=== PATIENT | male | born 1950 | race Caucasian/White ===

== ENCOUNTER → 2019-12-05 13:37 | Outpatient (BNVA) | payer MEDICARE, OTHER, SELFPAY | PROVIDERS: PCP Internal Medicine; Visit Provider Physician Assistant | DX: Z76.89 Persons encountering health services in other specified circumstances (principal) ==

== ENCOUNTER → 2019-12-07 08:04 | Outpatient (BNVA) | payer MEDICARE, OTHER, SELFPAY | PROVIDERS: PCP Internal Medicine; Visit Provider Physician Assistant | DX: E66.9 Obesity, unspecified (principal); Z68.35 Body mass index [BMI] 35.0-35.9, adult; E55.9 Vitamin D deficiency, unspecified | CPT/HCPCS: 99214 ==

== ENCOUNTER → 2020-02-08 08:35 | Outpatient (BNVA) | payer MEDICARE, OTHER, SELFPAY | PROVIDERS: PCP Internal Medicine; Referring Provider Internal Medicine; Visit Provider Physician Assistant | DX: E66.9 Obesity, unspecified (principal) | CPT/HCPCS: Q3014 ==

== ENCOUNTER → 2020-03-14 08:40 | Outpatient (BNVA) | payer MEDICARE, OTHER, SELFPAY | PROVIDERS: PCP Internal Medicine; Visit Provider Physician Assistant | DX: Z13.89 Encounter for screening for other disorder (principal) | CPT/HCPCS: Q3014 ==

== ENCOUNTER → 2020-04-14 08:15 | Outpatient (BNVA) | payer MEDICARE, OTHER, SELFPAY | PROVIDERS: PCP Internal Medicine; Visit Provider Dietitian, Registered ==

== ENCOUNTER → 2020-05-16 08:19 | Outpatient (BNVA) | payer MEDICARE, OTHER, SELFPAY | PROVIDERS: PCP Internal Medicine; Visit Provider Physician Assistant ==

== ENCOUNTER 2022-06-29 11:41 | Emergency (ER) | payer MEDICARE, OTHER, SELFPAY ==
--- NOTE | ~2022-06-29 | XR_ITS ---
EXAMINATION: XR TIBIA AND FIBULA, LEFT CLINICAL INFORMATION: Trauma, pain. COMPARISON: None available. TECHNIQUE: AP and lateral views of the left tibia and fibula were obtained. FINDINGS: The bones and soft tissues are normal. No fracture. No osseous lesions. There is tiny inferior calcaneal spur. XR/XR tibia fibula LT 2V IMPRESSION: No fracture or dislocation.
--- NOTE | ~2022-06-29 | US_ITS ---
EXAMINATION: US VENOUS ULTRASOUND WITH DOPPLER LOWER EXTREMITY, LEFT CLINICAL INFORMATION: Left lower extremity swelling COMPARISON: None available. TECHNIQUE: Ultrasound of the deep veins is performed from the hip to the calf with compression sonography and color and pulse Doppler assessment. Spectral analysis with color-flow imaging is performed. FINDINGS: There is normal venous compression and respiratory variation and augmented flow. The visualized common femoral vein, superficial femoral vein, profunda femoral vein, popliteal vein, and the trifurcation region shows no evidence of deep venous thrombosis. There is no significant popliteal fossa cyst. US/US venous duplex LE LT IMPRESSION: No DVT demonstrated in the left lower extremity.
--- NOTE | 2022-06-29 11:52 | ED.LOWEXIN ---
HPI - Extremity Injury (Lower) General Chief Complaint: Extremity Problem <JACKIE Burdick - Last Filed: 06/29/22 11:58> Stated Complaint: L leg cellulitis <JACKIE Burdick - Last Filed: 06/29/22 11:58> Time Seen by Provider: 06/29/22 13:31 <JACKIE Burdick - Last Filed: 06/29/22 11:58> Source: patient <John Quarles - Last Filed: 06/29/22 15:09> Limitations: language barrier <John Quarles - Last Filed: 06/29/22 15:09> History of Present Illness HPI Narrative: 71-year-old male who presents with left lower leg calf pain and swelling. Patient recently injured the left mobley on a cement stay approximately 4 days prior. Patient states there was some redness noted seen by PCP started on Keflex to avoid any cellulitis. Patient has a history of sepsis in the past and was not take any chances. Patient has longstanding history of hypertension, obstructive sleep apnea, asthma. Patient denies fever chills shortness of breath. Patient takes he is on Eliquis secondary to atrial fibrillation. Symptoms mild to moderate pain overall slight at this time. <John Quarles - Last Filed: 06/29/22 15:09> Related Data Home Medications: Home Medications Medication Instructions Recorded Confirmed albuterol sulfate 90 mcg/actuation 2 puff PO Q4H 12/07/19 03/14/20 aerosol inhaler allopurinol 100 mg tablet mg PO 12/07/19 03/14/20 amlodipine 10 mg tablet 10 mg PO DAILY 12/07/19 03/14/20 betamethasone dipropionate 0.05 % applic topical 12/07/19 03/14/20 topical cream hydrocortisone-pramoxine 1 %-1 % applic topical BID 12/07/19 03/14/20 topical cream spironolactone 25 mg tablet 25 mg PO DAILY 12/07/19 03/14/20 Previous Rx's Medication Instructions Recorded cholecalciferol (vitamin D3) 25 25 mcg PO DAILY #30 caps 12/07/19 mcg (1,000 unit) capsule <JACKIE Burdick Last Filed: 06/29/22 11:58> Allergies/Adverse Reactions: Allergies Allergy/AdvReac Type Severity Reaction Status Date / Time aspirin [ASA] Allergy Intermediate VOMIT Verified 06/29/22 11:53 latex [LATEX] Allergy Intermediate VOMIT Verified 06/29/22 11:53 Latex Allergy Unknown rash Uncoded 10/25/19 00:00 <JACKIE Burdick - Last Filed: 06/29/22 11:58> Review of Systems Review of Systems: General: No fever, no chills Ophthalmology: No vision changes, no discharge ENT: No sore throat, no ear pain Cardiovascular: No chest pain, no peripheral edema, no shortness of breath Respiratory: No dyspnea, no sputum production, no cough Muscle skeletal: Left calf pain leg pain GI: No abdominal pain: no nausea vomiting, no diarrhea : No dysuria, no urgency, no frequency Skin: No rash Immunology: No immunocompromised Hematology: No bleeding, no bruising <John Quarles - Last Filed: 06/29/22 15:09> [facility] Past Medical History Attestation statement: The following information was validated with the patient. <John Quarles - Last Filed: 06/29/22 15:09> Medical History: Medical History Aftercare following left shoulder joint replacement surgery Asthma Hypertension Nephrolithiasis Obstructive sleep apnea Tinnitus <JACKIE Burdick - Last Filed: 06/29/22 11:58> Surgical History: Surgical History H/O laminectomy S/p bilateral carpal tunnel release <JACKIE Burdick - Last Filed: 06/29/22 11:58> Social History Social History: Social History Alcohol intake: never Smoked in Last 30 Days: No Use of substances other than those prescribed or required for medical reasons: No Advance Directives: No Advance Directives Information Provided: Yes <JACKIE Burdick - Last Filed: 06/29/22 11:58> Physical Exam Vital Signs: Vital Signs: Last Vital Signs Temp 98 F 06/29/22 11:54 Pulse 82 06/29/22 11:54 Resp 18 06/29/22 11:54 BP 123/67 06/29/22 11:54 Pulse Ox 96 06/29/22 11:54 O2 Del Method Room Air 06/29/22 11:54 BMI result Body Mass Index 34.8 <JACKIE Burdick - Last Filed: 06/29/22 11:58> Vital Signs: Last Vital Signs Temp 98 F 06/29/22 11:54 Pulse 82 06/29/22 11:54 Resp 18 06/29/22 11:54 BP 123/67 06/29/22 11:54 Pulse Ox 96 06/29/22 11:54 O2 Del Method Room Air 06/29/22 11:54 BMI result Body Mass Index 34.8 <John Quarles - Last Filed: 06/29/22 15:09> General appearance: Awake, alert, cooperative, in no acute distress Skin: Warm, dry, no rash, no areas of erythema induration in the left leg no areas of lymphangitis Eyes: PERRL, EOMI, no icterus ENT: Oropharynx normal, uvula midline Neck: Soft supple full range of motion Pulmonary: Breath sounds clear to auscultation bilaterally, no accessory muscle use Cardiovascular: Regular rate and rhythm, no murmurs and rubs Abdomen: Soft nontender, no rebound or guarding, positive bowel sounds Extremities: Left calf slightly tender no ecchymosis erythema. Slight tenderness over the tibia proximal aspect small hematoma pulses sensation intact Neuro: Alert oriented x3, no focal deficit Psych: Normal affect <John Quarles - Last Filed: 06/29/22 15:09> Course Course Course Narrative: RME: 71yo M w/PMHx HTN, asthma, [place], c/o LLE injury last week s/p hitting leg on stair, was seen by PCP started Keflex for cellulitis on 5/2 w/some improvement, now reports swelling/discoloration noted to LLE. Pt on Eliquis. denies area worsening + scabbed over/healing wound to left anterior mobley with inferior swelling/pitting edema and firmness. No fluctuance/induration. Faintly erythematous, not warm Labs, venous duplex ultrasound ordered Full HPI, ROS and PE to be performed by primary ED provider. <JACKIE Burdick - Last Filed: 06/29/22 11:58> Left leg DVT Left leg cellulitis Tibial contusion Left tibial hematoma Compartment syndrome less likely 71-year-old male with left leg trauma proximally 4 days prior when he injured on a cement step. Patient is currently on Eliquis secondary atrial fibrillation. Patient was advised to get seen if he had any swelling or pain in his calf. Duplex ultrasounds pending will get tib fib of left leg. CBC BMP unremarkable at this time <John Quarles - Last Filed: 06/29/22 15:09> Medical Decision Making Medical Decision Making MDM Narrative: Left leg cellulitis Left leg DVT Left leg tibial fracture Left leg hematoma Left leg contusion 71-year-old male who presents after injuring his leg 4 days prior start on antibiotics secondary to concerns cellulitis by PCP. Patient began have some calf pain was sent to the ER for further evaluation. 15:07 ultrasound duplex is negative for DVT tib-fib x-ray is also negative for fracture. A clinical exam patient has a small hematoma of the mobley of the left leg. No signs of compartment syndrome. Pulses are intact sensations intact. Will plan to discharge patient home at this time. <John Quarles - Last Filed: 06/29/22 15:09> Lab Data Result Diagrams: 06/29/22 12:57 06/29/22 12:57 <JACKIE Burdick - Last Filed: 06/29/22 11:58> Labs: Lab Results 06/29/22 06/29/22 06/29/22 Range/Units 12:57 12:57 12:57 WBC 8.2 (4.8-10.8) X10*3/uL RBC 4.57 L (4.60-5.80) X10*6/uL Hgb 13.3 L (14.0-18.0) g/dl Hct 41.1 L (42.0-52.0) % MCV 89.9 (80.0-98.0) fL MCH 29.1 (27.0-33.0) pg MCHC 32.4 (31.0-36.0) g/dl RDW 13.1 (11.0-16.0) % Plt Count 249 (160-400) X10*3/uL MPV 9.6 (9.4-12.4) fL Immature Gran % (Auto) 0.4 (0.0-0.4) % Neut % (Auto) 66.8 (45-73) % Lymph % (Auto) 21.1 (20-40) % Calhoun % (Auto) 9.6 (2-11) % Eos % (Auto) 1.5 (0-4) % Baso % (Auto) 0.6 (0-2) % Lymph # (Auto) 1.7 (1.2-4.9) X10*3/uL Calhoun # (Auto) 0.8 (0.1-1.2) X10*3/uL Eos # (Auto) 0.1 (0.0-0.4) X10*3/uL Baso # (Auto) 0.1 (0.0-0.2) X10*3/uL Abs Immat Gran (auto) 0.03 (0.00-0.03) X10*3/uL Absolute Neuts (auto) 5.5 (2.0-8.3) x10*3/uL Absolute Nucleated RBC 0.000 (0.0-0.012) X10*3/uL Nucleated RBC % (auto) 0.0 (0.0-0.2) /100WBC PT 13.8 H (10.0-13.1) SEC INR 1.2 H (0.9-1.1) Sodium 139 (135-145) mmol/L Potassium 4.6 (3.3-5.1) mmol/L Chloride 106 (96-108) mmol/L Carbon Dioxide 25 (22-29) mmol/L Anion Gap 13 (12-20) BUN 26 H (9-16) mg/dL Creatinine 0.99 (0.5-1.4) mg/dL Estim Creat Clear Calc 95.3 Estimated GFR > 60 Random Glucose 84 (60-115) mg/dL Calcium 9.1 (8.4-10.2) mg/dL Total Bilirubin 0.6 (0.0-1.0) mg/dL Direct Bilirubin 0.2 (0.0-0.5) mg/dL AST 17 (5-37) U/L ALT 17 (0-40) U/L Alkaline Phosphatase 86 (39-117) U/L B-Natriuretic Peptide (<100) pg/mL Total Protein 7.1 (6.5-8.0) g/dL Albumin 4.5 (3.5-5.0) g/dL 05/09/23 Range/Units 12:57 WBC (4.8-10.8) X10*3/uL RBC (4.60-5.80) X10*6/uL Hgb (14.0-18.0) g/dl Hct (42.0-52.0) % MCV (80.0-98.0) fL MCH (27.0-33.0) pg MCHC (31.0-36.0) g/dl RDW (11.0-16.0) % Plt Count (160-400) X10*3/uL MPV (9.4-12.4) fL Immature Gran % (Auto) (0.0-0.4) % Neut % (Auto) (45-73) % Lymph % (Auto) (20-40) % Calhoun % (Auto) (2-11) % Eos % (Auto) (0-4) % Baso % (Auto) (0-2) % Lymph # (Auto) (1.2-4.9) X10*3/uL Calhoun # (Auto) (0.1-1.2) X10*3/uL Eos # (Auto) (0.0-0.4) X10*3/uL Baso # (Auto) (0.0-0.2) X10*3/uL Abs Immat Gran (auto) (0.00-0.03) X10*3/uL Absolute Neuts (auto) (2.0-8.3) x10*3/uL Absolute Nucleated RBC (0.0-0.012) X10*3/uL Nucleated RBC % (auto) (0.0-0.2) /100WBC PT (10.0-13.1) SEC INR (0.9-1.1) Sodium (135-145) mmol/L Potassium (3.3-5.1) mmol/L Chloride (96-108) mmol/L Carbon Dioxide (22-29) mmol/L Anion Gap (12-20) BUN (9-16) mg/dL Creatinine (0.5-1.4) mg/dL Estim Creat Clear Calc Estimated GFR Random Glucose (60-115) mg/dL Calcium (8.4-10.2) mg/dL Total Bilirubin (0.0-1.0) mg/dL Direct Bilirubin (0.0-0.5) mg/dL AST (5-37) U/L ALT (0-40) U/L Alkaline Phosphatase (39-117) U/L B-Natriuretic Peptide 19 (<100) pg/mL Total Protein (6.5-8.0) g/dL Albumin (3.5-5.0) g/dL <JACKIE Burdick - Last Filed: 06/29/22 11:58> Lab Results 06/29/22 06/29/22 06/29/22 Range/Units 12:57 12:57 12:57 WBC 8.2 (4.8-10.8) X10*3/uL RBC 4.57 L (4.60-5.80) X10*6/uL Hgb 13.3 L (14.0-18.0) g/dl Hct 41.1 L (42.0-52.0) % MCV 89.9 (80.0-98.0) fL MCH 29.1 (27.0-33.0) pg MCHC 32.4 (31.0-36.0) g/dl RDW 13.1 (11.0-16.0) % Plt Count 249 (160-400) X10*3/uL MPV 9.6 (9.4-12.4) fL Immature Gran % (Auto) 0.4 (0.0-0.4) % Neut % (Auto) 66.8 (45-73) % Lymph % (Auto) 21.1 (20-40) % Calhoun % (Auto) 9.6 (2-11) % Eos % (Auto) 1.5 (0-4) % Baso % (Auto) 0.6 (0-2) % Lymph # (Auto) 1.7 (1.2-4.9) X10*3/uL Calhoun # (Auto) 0.8 (0.1-1.2) X10*3/uL Eos # (Auto) 0.1 (0.0-0.4) X10*3/uL Baso # (Auto) 0.1 (0.0-0.2) X10*3/uL Abs Immat Gran (auto) 0.03 (0.00-0.03) X10*3/uL Absolute Neuts (auto) 5.5 (2.0-8.3) x10*3/uL Absolute Nucleated RBC 0.000 (0.0-0.012) X10*3/uL Nucleated RBC % (auto) 0.0 (0.0-0.2) /100WBC PT 13.8 H (10.0-13.1) SEC INR 1.2 H (0.9-1.1) Sodium 139 (135-145) mmol/L Potassium 4.6 (3.3-5.1) mmol/L Chloride 106 (96-108) mmol/L Carbon Dioxide 25 (22-29) mmol/L Anion Gap 13 (12-20) BUN 26 H (9-16) mg/dL Creatinine 0.99 (0.5-1.4) mg/dL Estim Creat Clear Calc 95.3 Estimated GFR > 60 Random Glucose 84 (60-115) mg/dL Calcium 9.1 (8.4-10.2) mg/dL Total Bilirubin 0.6 (0.0-1.0) mg/dL Direct Bilirubin 0.2 (0.0-0.5) mg/dL AST 17 (5-37) U/L ALT 17 (0-40) U/L Alkaline Phosphatase 86 (39-117) U/L B-Natriuretic Peptide (<100) pg/mL Total Protein 7.1 (6.5-8.0) g/dL Albumin 4.5 (3.5-5.0) g/dL 06/29/22 Range/Units 12:57 WBC (4.8-10.8) X10*3/uL RBC (4.60-5.80) X10*6/uL Hgb (14.0-18.0) g/dl Hct (42.0-52.0) % MCV (80.0-98.0) fL MCH (27.0-33.0) pg MCHC (31.0-36.0) g/dl RDW (11.0-16.0) % Plt Count (160-400) X10*3/uL MPV (9.4-12.4) fL Immature Gran % (Auto) (0.0-0.4) % Neut % (Auto) (45-73) % Lymph % (Auto) (20-40) % Calhoun % (Auto) (2-11) % Eos % (Auto) (0-4) % Baso % (Auto) (0-2) % Lymph # (Auto) (1.2-4.9) X10*3/uL Calhoun # (Auto) (0.1-1.2) X10*3/uL Eos # (Auto) (0.0-0.4) X10*3/uL Baso # (Auto) (0.0-0.2) X10*3/uL Abs Immat Gran (auto) (0.00-0.03) X10*3/uL Absolute Neuts (auto) (2.0-8.3) x10*3/uL Absolute Nucleated RBC (0.0-0.012) X10*3/uL Nucleated RBC % (auto) (0.0-0.2) /100WBC PT (10.0-13.1) SEC INR (0.9-1.1) Sodium (135-145) mmol/L Potassium (3.3-5.1) mmol/L Chloride (96-108) mmol/L Carbon Dioxide (22-29) mmol/L Anion Gap (12-20) BUN (9-16) mg/dL Creatinine (0.5-1.4) mg/dL Estim Creat Clear Calc Estimated GFR Random Glucose (60-115) mg/dL Calcium (8.4-10.2) mg/dL Total Bilirubin (0.0-1.0) mg/dL Direct Bilirubin (0.0-0.5) mg/dL AST (5-37) U/L ALT (0-40) U/L Alkaline Phosphatase (39-117) U/L B-Natriuretic Peptide 19 (<100) pg/mL Total Protein (6.5-8.0) g/dL Albumin (3.5-5.0) g/dL <John Quarles - Last Filed: 06/29/22 15:09> Radiology Impression Discussion of test interpretation with radiology: I have reviewed the radiologist's reading. <John Quarles - Last Filed: 06/29/22 15:09> Radiologist Impression: [address] [place] [id number] Ultrasound Report Signed Patient: Kermit Galaviz MR#: [id number] : 1950 Acct:[id number] Age/Sex: 71 / M ADM Date: 06/29/22 Loc: .ED Attending Dr: Ordering Physician: Mayra Covington Date of Service: 06/29/22 Procedure(s): US venous duplex LE LT Accession Number(s): [id number] cc: Mayra Covington~ EXAMINATION:? US VENOUS ULTRASOUND WITH DOPPLER LOWER EXTREMITY, LEFT CLINICAL INFORMATION:? Left lower extremity swelling COMPARISON:? None available. TECHNIQUE: Ultrasound of the deep veins is performed from the hip to the calf with compression sonography and color and pulse Doppler assessment. Spectral analysis with color-flow imaging is performed. FINDINGS: There is normal venous compression and respiratory variation and augmented flow. The visualized common femoral vein, superficial femoral vein, profunda femoral vein, popliteal vein, and the trifurcation region shows no evidence of deep venous thrombosis. ? There is no significant popliteal fossa cyst. US/US venous duplex LE LT IMPRESSION: No DVT demonstrated in the left lower extremity. Dictated By: Nahed Ochoa MD Signed By: <Electronically signed by Nahed Ochoa MD in [place]> 06/29/22 1340 DD/ 1242 TD/TT:? Junior Manufacturing Engineer: [address] [id number] XRay Report Signed Patient: Kermit Galaviz MR#: [id number] : 1950 Acct:[id number] Age/Sex: 71 / M ADM Date: 06/29/22 Loc: .ED Attending Dr: Ordering Physician: John Quarles Date of Service: 06/29/22 Procedure(s): XR tibia fibula LT 2V Accession Number(s): [id number] cc: John Quarles ~ EXAMINATION: XR TIBIA AND FIBULA, LEFT CLINICAL INFORMATION: Trauma, pain.? COMPARISON: None available.? TECHNIQUE: AP and lateral views of the left tibia and fibula were obtained. FINDINGS: The bones and soft tissues are normal. No fracture. No osseous lesions. There is tiny inferior calcaneal spur. XR/XR tibia fibula LT 2V IMPRESSION: No fracture or dislocation. ? Dictated By: Erlin Chen MD Signed By: <Electronically signed by Erlin Chen MD in [place]> 06/29/22 1457 DD/ 1405 TD/TT:? Junior Manufacturing Engineer: HS <John Quarles - Last Filed: 06/29/22 15:09> Discharge Plan Discharge Clinical Impression: Contusion of left leg <JACKIE Burdick - Last Filed: 06/29/22 11:58> Patient Disposition: Home, Self-Care <JACKIE Buridck - Last Filed: 06/29/22 11:58> Instructions: Contusion in Adults (ED) <JACKIE Burdick - Last Filed: 06/29/22 11:58> Additional Instructions: Ultrasound of the left leg is negative for blood clot. X-ray of your leg is negative for underlying fracture Current symptoms are likely secondary to contusion original injury rest ice elevation continue current medications as directed return if symptoms worsen <JACKIE Burdick - Last Filed: 06/29/22 11:58> Prescriptions: No Action amlodipine 10 mg tablet 10 mg PO DAILY betamethasone dipropionate 0.05 % cream topical spironolactone 25 mg tablet 25 mg PO DAILY Pramosone 1-1 % cream topical BID allopurinol 100 mg tablet PO albuterol sulfate 90 mcg/actuation HFA aerosol inhaler 2 puff PO Q4H cholecalciferol (vitamin D3) 25 mcg (1,000 unit) capsule 25 mcg PO DAILY Qty: 30 6RF <JACKIE Burdick - Last Filed: 06/29/22 11:58>
[2022-06-29 11:54] VITALS: BP 123/67; PULSE 82; RESP 18; TEMP 36.6; O2SAT 96; BMI 34.8
[2022-06-29 13:03] LABS: MANUAL DIFF FLAG NO
[2022-06-29 13:04] LABS: Basophils Absolute Auto 0.1 X10*3/uL (0.0-0.2); Basophils Percent Auto 0.6 % (0-2); Eosinophils Absolute Auto 0.1 X10*3/uL (0.0-0.4); Eosinophils Percent Auto 1.5 % (0-4); Hematocrit 41.1 % (42.0-52.0); Hemoglobin 13.3 g/dl (14.0-18.0); Imm Gran Abs Auto 0.03 X10*3/uL (0.00-0.03); Imm Gran Pct Auto 0.4 % (0.0-0.4); Lymphocytes Absolute Auto 1.7 X10*3/uL (1.2-4.9); Lymphocytes Percent Auto 21.1 % (20-40); Mean Corpuscular HGB Conc 32.4 g/dl (31.0-36.0); Mean Corpuscular Hemoglobin 29.1 pg (27.0-33.0); Mean Corpuscular Volume 89.9 fL (80.0-98.0); Mean Platelet Volume 9.6 fL (9.4-12.4); Monocytes Absolute Auto 0.8 X10*3/uL (0.1-1.2); Monocytes Percent Auto 9.6 % (2-11); Neutrophils Absolute Auto 5.5 x10*3/uL (2.0-8.3); Neutrophils Percent Auto 66.8 % (45-73); Platelet Count 249 X10*3/uL (160-400); Red Blood Count 4.57 X10*6/uL (4.60-5.80); Red Cell Distribution Width 13.1 % (11.0-16.0); White Blood Count 8.2 X10*3/uL (4.8-10.8)
[2022-06-29 13:10] LABS: INTERNATIONAL NORM RATIO 1.2 (0.9-1.1); Prothrombin Time 13.8 SEC (10.0-13.1)
[2022-06-29 13:19] LABS: Alanine Aminotransferase 17 U/L (0-40); Albumin Level 4.5 g/dL (3.5-5.0); Alkaline Phosphatase 86 U/L (39-117); Anion Gap 13 (12-20); Aspartate Amino Transferase 17 U/L (5-37); Bilirubin Direct 0.2 mg/dL (0.0-0.5); Bilirubin Total 0.6 mg/dL (0.0-1.0); Blood Urea Nitrogen 26 mg/dL (9-16); Calcium 9.1 mg/dL (8.4-10.2); Carbon Dioxide 25 mmol/L (22-29); Chloride 106 mmol/L (96-108); Creatinine Clr Calc Pharmacy 95.3; Estimated Glomerular Filt Rate > 60; Glucose Random 84 mg/dL (60-115); Potassium 4.6 mmol/L (3.3-5.1); Sodium 139 mmol/L (135-145); Total Protein 7.1 g/dL (6.5-8.0)
[2022-06-29 13:26] LABS: B Type Natriuretic Peptide 19 pg/mL (<100)
--- NOTE | 2022-06-29 13:35 | PC.NURSE ---
Patient bumped his leg approximately 10-12 days ago and afterwards started noticing some redness to the area, patient was taking his wifes augmentin. Starting Tuesday patient was placed on an antibiotic which patient does not remember the name of. Patient noted a purple area to the back of the affected legs and had an appointment to see his PCP today, however, there was a mix up and the PCP wasn't in today so patient came to be checked out.
[2022-06-29 15:32] VITALS: BP 113/73; PULSE 63; RESP 15; O2SAT 97
== END 2022-06-29 15:34 | disposition home or self-care (01) ==
PROVIDERS: Physician Assistant; Emergency Provider Emergency Medicine; PCP Family Medicine
DX: S80.12XA Contusion of left lower leg, initial encounter (principal); W22.09XA Striking against other stationary object, initial encounter; L03.116 Cellulitis of left lower limb; M79.662 Pain in left lower leg; R60.0 Localized edema; I10 Essential (primary) hypertension; I48.91 Unspecified atrial fibrillation; Z79.01 Long term (current) use of anticoagulants; Z79.899 Other long term (current) drug therapy; Y93.89 Activity, other specified; Y92.9 Unspecified place or not applicable; Y99.9 Unspecified external cause status
CPT/HCPCS: 36415; 73590; 80048; 80076; 83880; 85025; 85610; 93971; 99284

== ENCOUNTER 2023-09-29 09:33 | Outpatient (REF) | payer MEDICARE, OTHER, SELFPAY ==
[2023-09-29 11:00] LABS: Anion Gap 11 (12-20); Blood Urea Nitrogen 27 mg/dL (9-16); Carbon Dioxide 31 mmol/L (22-29); Chloride 103 mmol/L (96-108); Estimated Glomerular Filt Rate > 60; Phosphorus 3.1 mg/dL (2.7-4.5); Potassium 4.9 mmol/L (3.3-5.1); Sodium 140 mmol/L (135-145)
[2023-09-29 11:06] LABS: Parathyroid Hormone Intact 68.1 pg/mL (8.7-77.1)
[2023-09-29 11:47] LABS: Uric Acid 4.7 mg/dL (3.4-7.0)
[2023-09-29 12:14] LABS: Appearance Urine Clear; Color Urine Dark Yellow; Glucose Urine UA Negative (Negative); Leukocyte Esterase Urine Negative (Negative); Nitrite Urine Negative (Negative); PH 5.5 (5.0-9.0); Specific Gravity - Urine 1.025 (1.005-1.025); Urine Blood Negative (Negative); Urine Ketones Trace mg/dL (Negative); Urine Protein Trace mg/dL (Neg-Trace)
[2023-09-29 12:57] LABS: Creatinine Urine 184.36 mg/dL; Microalbum/Creatinine Ratio Ur 39.5 ug/mg cr (<30); Protein/Creatinine Ratio, Ur 0.15 (<0.2); Total Protein Urine Random 27 mg/dL (<12)
== END 2023-09-29 09:34 | disposition home or self-care (01) ==
LOC: HO.LAB 09:33
PROVIDERS: PCP Family Medicine; Visit Provider Internal Medicine Nephrology
DX: N20.0 Calculus of kidney (principal); Q61.9 Cystic kidney disease, unspecified
CPT/HCPCS: 36415; 80051; 81003; 82043; 82310; 82565; 82570; 83970; 84100; 84156; 84520; 84550

== ENCOUNTER 2024-10-29 10:36 | Outpatient (AMB) | payer MEDICARE, OTHER, SELFPAY ==
--- OUTSIDE RECORDS SUMMARY | 2023-08-04 07:30 | XMS_ITS ---
Author Organization [facility] Address [address] [place] [address] Care Team Providers Care Candle Wrapper Name Role Phone ULYSSES LA Unavailable [phone] REASON FOR VISIT SECA PAID Medications Medication SIG (Take, Route, Frequency, Duration) Notes Start Date End Date Status Ozempic (1 MG/DOSE) 4 MG/3ML 1mg Subcutaneous weekly; Duration: 30 days Active Ozempic (0.25 or 0.5 MG/DOSE) 2 MG/3ML 0.25mg x 2 weeks, then 0.5mg weekly Subcutaneous weekly; Duration: 30 days Active Encounters Encounter Location Date Provider Diagnosis [facility] [address] [place] [id number] 08/04/2023 ULYSSES LA Other obesity due to [...] now plentiful and should be available to brain picker at pharmacy Total time spent today [...] minimum of 6 months The most recent [place] [employer] of clinical endocrinologists and [place] [employer] endocrin[employer] guidelines recommend patients who [...] track activity level. Consider using apps like INVERMART, myfitnesspal, lose it, stick as needed for self-monitoring and weight management. Consider group exercises. Consider hiring a personal lines underwriter. Regular exercise is cunningham to sustainable health [...] counseling and psychiatry and Dr Quinn at [facility]. We would like to cover regular topics [...] software and direct typing Please excuse inadvertent solar system designer or typing errors, or uncorrected word substitutions Although every attempt has been made by the provider to proofread this document, occasional misspellings and typographical errors may still be present Due to the previous pandemic, and the use of personal protective equipment (PPE) This may decrease voice recognition accuracy Inadvertent solar system designer errors may occur 08/04/2023 BMI 39.0-39.9,adult (ICD-10 - Z68.39) #Weight Management 08/04/2023 We will reinitiate Genempic as he did well on this in the past There stock is now plentiful and should be available to brain picker at pharmacy Total time spent today [...] minimum of 6 months The most recent [place] [employer] of clinical endocrinologists and [place] [employer] endocrin[employer] guidelines recommend patients who [...] track activity level. Consider using apps like INVERMART, myfitnesspal, lose it, stick as needed for self-monitoring and weight management. Consider group exercises. Consider hiring a personal lines underwriter. Regular exercise is cunningham to sustainable health [...] counseling and psychiatry and Dr Quinn at [facility]. We would like to cover regular topics [...] software and direct typing Please excuse inadvertent solar system designer or typing errors, or uncorrected word substitutions Although every attempt has been made by the provider to proofread this document, occasional misspellings and typographical errors may still be present Due to the previous pandemic, and the use of personal protective equipment (PPE) This may decrease voice recognition accuracy Inadvertent solar system designer errors may occur 08/04/2023 Dietary counseling and surveillance (ICD-10 - Z71.3) #Weight Management 08/04/2023 We will reinitiate Reji as he did well on this in the past There stock is now plentiful and should be available to brain picker at pharmacy Total time spent today [...] minimum of 6 months The most recent [place] [employer] of clinical endocrinologists and [place] [employer] endocrin[employer] guidelines recommend patients who [...] track activity level. Consider using apps like INVERMART, myfitnesspal, lose it, stick as needed for self-monitoring and weight management. Consider group exercises. Consider hiring a personal lines underwriter. Regular exercise is cunningham to sustainable health [...] counseling and psychiatry and Dr Quinn at [facility]. We would like to cover regular topics [...] software and direct typing Please excuse inadvertent solar system designer or typing errors, or uncorrected word substitutions Although every attempt has been made by the provider to proofread this document, occasional misspellings and typographical errors may still be present Due to the previous pandemic, and the use of personal protective equipment (PPE) This may decrease voice recognition accuracy Inadvertent solar system designer errors may occur Plan Of Treatment Medication Medication Name Sig Start Date Stop Date Notes Ozempic (1 MG/DOSE) 4 MG/3ML 1mg Subcuta neous weekly; Duration: 30 days Ozempic (0.25 or 0.5 MG/DOSE) 2 MG/3ML 0.25mg x 2 weeks, then 0.5mg weekly Subcutaneous weekly; Duration: 30 days Progress Notes * AURELIA WHARTONOB:1950 (73 yo M)Acc No.[id number]:08/04/2023 Patient: LIO VIRGEN Provider: Steve LA NP :1950 A ge:72 Y S ex:Male Date:08/04/2023 [facility] [id number] Subjective: * Chief Complaints: * 1 . 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 B [place] 39.0-39.9,adult - Z68.39 3 . D ietary counseling and surveillance - Z71.3 ? #Weight Management 08/04/2023 We will reinitiate Reji as he did well on this in the past There stock is now plentiful and should be available to brain picker at pharmacy Total time spent today [...] minimum of 6 months The most recent [place] [employer] of clinical endocrinologists and [place] [employer] of endocrinology guidelines recommend patients who [...] track activity level. Consider using apps like INVERMART, Cellwitchpal, lose it, stick as needed for self-monitoring and weight management. Consider group exercises. Consider hiring a personal lines underwriter. Regular exercise is cunningham to sustainable health [...] counseling and psychiatry and Dr Quinn at [facility]. We would like to cover regular topics [...] software and direct typing Please excuse inadvertent solar system designer or typing errors, or uncorrected word substitutions Although every attempt has been made by the provider to proofread this document, occasional misspellings and typographical errors may still be present Due to the previous pandemic, and the use of personal protective equipment (PPE) This may decrease voice recognition accuracy Inadvertent solar system designer errors may occur. 

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
--- OUTSIDE RECORDS SUMMARY | 2024-10-29 12:48 | XMS_ITS | Clinical Summary ---
Author Organization [facility] Address [address] [place] [phone] Phone Care Team Providers Care Teacher Of The Hearing Impaired Name Role Phone Kaila Varela MD Primary Care Provider [phone] Allergies Active Allergy Reactions Criticality Noted Date Comments Aspirin Nausea 09/22/2023 Other Reaction(s): vomiting Latex Other (see comments) 09/22/2023 Lisinopril Other (see comments) 04/17/2018 Medications allopurinol (ZYLOPRIM) 100 MG tablet Take 100 mg by mouth at bed time Active Eliquis 5 MG tablet Take 5 mg by mouth every 12 (twelve) hours EVERY 12 HOURS DIRECTED 06/24/2023 Active lisinopril 20 MG tablet Take 20 mg by mouth 1 (one) time each day Active Ozempic, 1 MG/DOSE, 4 MG/3ML solution pen-injector Inject 1 mg under the skin every 7 (seven) days 08/29/2023 Active losartan (COZAAR) 50 MG tablet Take 50 mg by mouth 1 (one) time each day Active tadalafil (CIALIS) 20 MG tablet Take 20 mg by mouth 1 (one) time each day if needed 02/06/2009 Active finasteride (PROSCAR) 5 MG tablet Take 5 mg by mouth 1 (one) time each day 10/09/2023 Active Active Problems Problem Noted Date Diagnosed Date Recurrent kidney stone 09/22/2023 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 [address] [phone] Miguel Rao MD Recurrent kidney stone; Multiple congenital cysts of kidney; Essential hypertension from Last 3 Months Immunizations Immunization Administration Dates Next Due Influenza Split High Dose Pr eservative Free IM 11/23/2018,12/22/2017,01/25/2017 Influenza Vaccine, Quadrivalent, Adjuvanted 11/22 Pfizer SARS-COV-2 11/26/2020,05/23/2020,05/03/19 21 Pneumococcal Conjugate 13-Valent 02/04/2018 Pneumococcal Polysaccharide 01/25/2017 Td 08/30/2019,01/17/2001 Family History Medical History Relation Comments Cancer Father prostate Cancer Paternal Grandfather prostate Relation Status Comments Father Paternal Grandfather Social History Tobacco Use Types Packs/Day Years Used Date Smoking Tobacco: Never Smokeless Tobacco: Never Tobacco Cessation:Counseling Given: Not Answered Alcohol Use Standard Drinks/Week Comments Never 0 (1 standard drink = 0.6 oz pur e alcohol) Sex and Gender Information Value Date Recorded Sex Assigned at Not on file Legal Sex Male 5:14 PM EST Gender Identity Not on file Sexual Orientation Not on file Last Filed Vital Signs Vital Sign Reading Time Taken Comments Blood Pressure 134/72 11/01/2023 10:24 AM EDT Pulse 74 11/01/2023 10:24 AM EDT Temperature - - Respiratory Rate - - Oxygen Saturation 98% 11/01/2023 10:24 AM EDT Inhaled Oxygen Concentration - - Weight 126 kg (277 lb 3.2 oz) 11/01/2023 10:24 A M EDT Height - - Body Mass Index - - Plan of Treatment Upcoming Encounters Date Type Department Care Team (Late st Contact Info) Description 10/30/2024 4:15 PM EDT Office Visit [facility] [address] [phone] Miguel Rao MD [address] [phone] Health Maintenance Due Date Last Done Comments Colorectal Cancer Screening: Annual FOBT 11/08/1999 Colorectal Cancer Screening: Colonoscopy 11/08/1999 Colorectal Cancer Screening: Sigmoidoscopy 11/08/1999 Influenza Vaccine (#1) 2024 4, 12/11/2021, 11/23/2018, Additional history exists Pneumococcal Vaccine: 50+ Years Completed 02/04/2018, 01/25/2017 Pneumococcal Vaccine: Peds (0 to 5 Years) and At-Risk Patients (6 to 49 Years) Discontinued 02/04/2018, 01/25/2017 Hepatitis B Vaccine Aged Out No longe r eligible based on patient's age to complete this topic Procedures Procedure Name Priority Date/Time Associated Diagnosis Comments URINE ALBUMIN / CREATININE RATIO Routine 09/26/2024 10:10 AM EDT PROTEIN / CREATININE RATIO, URINE Routine 09/26/2024 10:10 AM EDT RENAL FUNCTION PANEL Routine 09/26/2024 10:10 AM EDT URINALYSIS WITH MICROSCOPIC Routine 09/26/2024 10:10 AM EDT MICROSCOPIC EXAMINATION - DO NOT USE Routine 09/26/2024 10:10 AM EDT from Last 3 Months Results * Microscopic Examination (09/26/2024 10:10 AM EDT) WBC, Urine None seen 0 - 5 /hpf [facility] RBC, Urine 0-2 0 - 2 /hpf [facility] Squamous Epithelial, Urine None seen 0 - 10 /hpf [facility] Casts None seen None seen /lpf [facility] Bacteria, Urine None seen None seen/Few [facility] 09/26/2024 10:1 0 AM EDT 09/26/2024 Miguel Rao MD LAB MICROBIOLOGY - GENERAL OR DERABLES Final Result Performing Organization Address [facility]/ZIP Co de Phone Number [facility] [address] [place] [address] * Protein, Total, Random Urine w/Creatinine (Protein/Creat Ratio) (09/26/2024 10:10 AM EDT) Creatinine, Ur 138.0 Not Estab. mg/dL [facility] Protein, Ur 20.3 Not Estab. mg/dL [facility] Urine Protein/Creatin ine Ratio 147 0 - 200 mg/g creat [facility] 09/26/2024 10:1 0 AM EDT 09/26/2024 Miguel Rao MD LAB URINE ORDERABLES Final Re sult Performing Organization Address [facility] Co de Phone Number [facility] [address] [place] [address] * (ABNORMAL) Urine Albumin / Creatinine Ratio (09/26/2024 10:10 AM EDT) Albumin, Urine 56.6 Not Estab. ug/mL [facility] Albumin/Creatin ine Ratio 41(H) 0 - 29 mg/g creat [facility] Comment: Normal: 0 - 29 Moderately increased: 30 - 300 Severely increased: >300 09/26/2024 10:1 0 AM EDT 09/26/2024 Miguel Rao MD LAB URINE ORDERABLES Final Re sult Performing Organization Address City/[facility]/ZIP Co de Phone Number [facility] [address] [place] [address] * Urinalysis with microscopic (09/26/2024 10:10 AM EDT) Specific [place], Urine 1.024 1.005 - 1.030 [facility] pH Urine 5.5 5.0 - 7.5 [facility] Color, Urine Yellow Yellow [facility] Appearance Urine Clear Clear [facility] WBC Esterase Urine Negative Negative [facility] Protein, Ur Trace Negative/Tra ce [facility] Glucose, Ur Negative Negative [facility] Ketones, Urine Negative Negative [facility] Blood Urine Negative Negative [facility] Bilirubin Urine Negative Negative [facility] Urobilinogen Urine 0.2 0.2 - 1.0 mg/dL [facility] Nitrite, Urine Negative Negative [facility] Microscopic Examination Comment [facility] Comment:Microscopic follows if indicated. Other Microsc. Observations See below: [facility] Comment:Microscopic was lyn cated and was performed. 09/26/2024 10:1 0 AM EDT 09/26/2024 us Miguel Rao MD LAB URINE ORDERABLES Final Re sult [facility] [address] [place] [address] * (ABNORMAL) Renal Function Panel (09/26/2024 10:10 AM EDT) Glucose 86 70 - 99 mg/dL [facility] BUN 29(H) 8 - 27 mg/dL [facility] Creatinine 1.19 0.76 - 1.27 mg/dL [facility] eGFR CKD-EPI CR 2020 64 >59 mL/min/1.7 3 [facility] BUN/Creatinine Ratio 24 10 - 24 [facility] Sodium 138 134 - 144 mmol/L [facility] Potassium 5.1 3.5 - 5.2 mmol/L [facility] Chloride 99 96 - 106 mmol/L [facility] Bicarbonate (CO2) 22 20 - 29 mmol/L [facility] Calcium 9.9 8.6 - 10.2 mg/dL [facility] Albumin 4.5 3.8 - 4.8 g/dL [facility] Phosphorus 3.8 2.8 - 4.1 mg/dL [facility] 09/26/2024 10:1 0 AM EDT 09/26/2024 us Miguel Rao MD LAB BLOOD ORDERABLES Final Re sult [facility] [address] [place] [phone] from Last 3 Months Insurance Medicare Unicare Medicare Unicare Care Teams Teacher Of The Hearing Impaired Relationship Specialty Start Date End Date Kaila Varela MD [address] [phone] PCP - General Family Medicine 08/08/23
--- OUTSIDE RECORDS SUMMARY | 2024-10-29 12:48 | XMS_ITS | Encounter Summary ---
Author Organization [facility] [place] [address] Care Team Providers Care Association Executive Name Role Phone Kaila Varela MD Primary Care Provider [phone] Encounter Details Date Type Department Care Team (Late st Contact Info) Description 03/09/2024 Lab Requisition [facility] - Main Lab [address] [facility] [place] [address] Natacha Cosme PA [address] [place] [address] Urinary tract infection, site not specified Social History Tobacco Use Types Packs/Day Years Used Date Smoking Tobacco: Never Smokeless Tobacco: Never Alcohol Use Standard Drinks/Week Comments Never 0 (1 standard drink = 0.6 oz pur e alcohol) Sex and Gender Information Value Date Recorded Sex Assigned at Not on file Legal Sex Male 9:13 AM EST Gender Identity Not on file Sexual Orientation Not on file documented as of this encounter Plan of Treatment Not on file documented as of this encounter Procedures Procedure Name Priority Date/Time Associated Diagnosis Comments CULTURE URINE Routine 03/09/2024 12:00 AM EST Urinary tract infection, site not specified documented in this encounter Results * Culture urine (03/09/2024 12:00 AM EST) Culture, Urine No growth 03/10/2024 10:08 AM EST [facility] Urine Urine specimen obtained by clean catch procedure / Unknown 03/09/2024 03/09/2024 1:08 PM EST us Natacha MEJIA LAB MICROBIOLOGY - GENERAL ORD ERABLES Final Result [facility] [address] [place] [address], documented in this encounter Visit Diagnoses Diagnosis Urinary tract infection, site not specified documented in this encounter Care Teams Association Executive Relationship Specialty Start Date End Date Kaila Varela MD [address] [phone] PCP - General 03/11/22 documented as of this encounter
--- OUTSIDE RECORDS SUMMARY | 2024-10-29 12:48 | XMS_ITS | Clinical Summary ---
Author Organization LL [address] [place] [address] [place] [phone] Phone Care Team Providers Care Data Management Associate Name Role Phone Kaila Varela MD Primary Care Provider [phone] Allergies Active Allergy Reactions Criticality Noted Date Comments Latex Hives,Rash,Other High 10/24/2014 Other reaction(s): Rash Lisinopril Dizziness 04/17/2018 Medications albuterol 2.5 mg /3 mL (0.083 %) continuous nebulization Take by nebulization 1 (one) time. Active albuterol HFA (PROAIR HFA ; PROVENTIL HFA ; VENTOLIN HFA) 90 mcg/actuation inhaler Inhale 2 puffs by mouth every 6 (six) hours if needed for wheezing. Active allopurinoL (ZYLOPRIM) 100 mg tablet Take 1 tablet (100 mg total) by mouth 1 (one) time each day. Active amoxicillin (AMOXIL) 500 mg capsule Take by mouth. Activ e betamethasone dipropionate (DIPROSONE) 0.05 % cream Apply topically 2 (two) times a day. Active dilTIAZem CD (CARDIZEM CD) 240 mg 24 hr capsule Take 1 capsule (240 mg total) by mouth 1 (one) time each day. Active apixaban (ELIQUIS) 5 mg tablet Take 1 tablet (5 mg total) by mouth 2 (two) times a day. Active finasteride (PROSCAR) 5 mg tablet Take 1 tablet (5 mg total) by mouth 1 (one) time each day. Do not crush, chew, or split. Active fluocinolone acetonide oiL 0.01 % drops Administer into affected ear(s). Active fluorouraciL (EFUDEX) 5 % cream Apply topically. Act tristan losartan (COZAAR) 50 mg tablet Take 1 tablet (50 mg total) by mouth 1 (one) time each day. Active potassium citrate (UROCIT-K) 10 mEq (1,080 mg) CR tablet Take by mouth 3 (three) times a day with meals. Do not crush, chew, or split. Active pramoxine-hydroc ortisone (Pramosone) cream Apply topically 3 (three) times a day. Active timolol (TIMOPTIC) 0.5 % ophthalmic solution 5 Active senna (SENOKOT) 8.6 mg tablet Take 1 tablet (8.6 mg total) by mouth. 4 Active fluticasone propionate (FLONASE) 50 mcg/actuation nasal spray 1 (one) time each day at the same time. Active EPINEPHrine (EPIPEN) 0.3 mg/0.3 mL injection epinephrine 0.3 mg/0.3 mL injection, auto-injector Take 1 auto as needed by injection route for 1 day. Active polyethylene glycol (Golytely) 236-22.74-6.74 -5.86 gram solution Take 4L by mouth once for one dose. May substitue any PEG. Starting at 6PM the night before your procedure drink 1 8oz glasses at your own pace until you complete half of the gallon. Finish 2nd half of the gallon 5 hours before your procedure. 4000 mL 5 Active bisacodyL (DULCOLAX) 5 mg EC tablet Take 2 tablets by mouth right before beginning bowel prep. See instructions provided by the office 2 tablet 5 Active Medical History Medical History Date Comments Kidney stones DX:Kidney stones Sleep apnea DX:Sleep apnea Sepsis ([facility] V24, [facility] V28) DX:Sepsis ([facility]) MIGUEL (acute kidney injury) ([facility] V24) DX:MIGUEL (acute kidney injury) ([facility]) Bacteremia DX:Bacteremia Rhabdomyolysis DX:Rhabdomyolysi s UTI (urinary tract infection) DX :UTI (urinary tract infection) Pyelonephritis DX:Pyelonephriti s LLOYD (obstructive sleep apnea) DX :LLOYD (obstructive sleep apnea) Social History Tobacco Use Types Packs/Day Years Used Date Smoking Tobacco: Never Smokeless Tobacco: Never Alcohol Use Standard Drinks/Week Comments Never 0 (1 standard drink = 0.6 oz pur e alcohol) Sex and Gender Information Value Date Recorded Sex Assigned at Not on file Legal Sex Male 9:13 AM EST Gender Identity Not on file Sexual Orientation Not on file Obstetrics History Last Filed Vital Signs Vital Sign Reading Time Taken Comments Blood Pressure 101/84 07/06/2024 10:27 AM EDT Pulse 74 07/06/2024 10:27 AM EDT Temperature 36.7 C (98 F) 07/06/2024 10:07 AM EDT Respiratory Rate 16 07/06/2024 10:27 AM EDT Oxygen Saturation 93% 07/06/2024 10:27 AM EDT Inhaled Oxygen Concentration - - Weight 132 kg (290 lb) 07/06/2024 9:28 AM EDT Height 188 cm (6' 2 ) 07/06/2024 9:28 AM EDT Body Mass Index 37.23 07/06/2024 9:28 AM EDT Plan of Treatment Health Maintenance Due Date Last Done Comments Abdominal Aortic Aneurysm (AAA) Screen 01/24/2022 Cholesterol Screening (Lipid Panel) 01/24/2022 Hepatitis C Screening 01/24/2022 Social Influencers of Health Screening 01/24/2022 Hypertension/CHF/CAD Annual BMP Blood Test 03/22/2023 Medicare Annual Wellness Visit 09/28/2023 09/27/2022 Zoster Vaccines (2 of 2) 12/06/2023 10/11/2023 Depression Screening 02/22/2024 COVID-19 Vaccine ( season) 2024 03/02/2024, 12/11/2021, 11/26/2020, Additional history exists Influenza Vaccine (#1) 2024 , 12/11/2021, 11/26/2020, Additional history exists Falls Risk Assessment 07/06/2025 07/06/2024 DTaP,Tdap,and Td Vaccines (3 - Td or Tdap) 08/29/2029 08/30/2019, 01/17/2001 Colorectal Cancer Screening: Colonoscopy 07/06/2034 07/06/2024 Pneumococcal Vaccine: 50+ Years Completed 02/04/2018, 01/25/2017 RSV Immunization Adult Patients Completed 03/24/2024 HIB Vaccines Aged Out No longer eligi ble based on patient's age to complete this topic HPV Vaccines Aged Out No longer eligi ble based on patient's age to complete this topic Hepatitis A Vaccines Aged Out No long er eligible based on patient's age to complete this topic Hepatitis B Vaccines Aged Out No long er eligible based on patient's age to complete this topic IPV Vaccines Aged Out No longer eligi ble based on patient's age to complete this topic MMR Vaccines Aged Out No longer eligi ble based on patient's age to complete this topic Meningococcal ACWY Vaccine Aged Out N o longer eligible based on patient's age to complete this topic Meningococcal B Vaccine Aged Out No l onger eligible based on patient's age to complete this topic RSV Immunization Patients Under 20 months Aged Out No longer eligible based on patient's age to complete this topic Varicella Vaccines Aged Out No longer eligible based on patient's age to complete this topic Procedures Procedure Name Priority Date/Time Associated Diagnosis Comments COLONOSCOPY Routine 07/06/2024 10:06 AM EDT Personal history of colon polyps, unspecified from Last 3 Months or Most Recently Relevant to Health Maintenance Results * COLONOSCOPY Anesthesia - MAC; [facility] ENDOSCOPY (07/06/2024 10:06 AM EDT) Anatomical Region Laterality Modality Other 07/06/2024 9:28 AM EDT Impressions 07/06/2024 10:06 AM EDT - One 5 mm polyp in the proximal ascending colon, removed with a cold snare. Resected and retrieved. - One 9 mm polyp in the proximal rectum, removed with a hot snare. Resected and retrieved. - Diverticulosis in the sigmoid colon. - Non-bleeding internal hemorrhoids. - The examination was otherwise normal on direct and retroflexion views. Recommendation: - Discharge patient to home. - High fiber diet. - Continue present medications. - Resume Eliquis (apixaban) at prior dose tomorrow. - Await pathology results. - Repeat colonoscopy for surveillance based on pathology results. - Return to GI clinic PRN. Narrative 07/06/2024 10:06 AM EDT [facility] GI Patient Name: Kermit Galaviz Procedure Date: 07/06/2024 9:28 AM Date of : 1950 Age: 73 Room: ROOM 14 Gender: Male Note Status: Finalized Attending MD: David Lim MD, Procedure Date No Time: 07/06/2024 Procedure: Colonoscopy Indications: High risk colon cancer surveillance: Personal history of colonic polyps Providers: David Lim MD Referring MD: David Lim MD Medicines: Monitored Anesthesia Care Complications: No immediate complications. Estimated Blood Loss: Estimated blood loss: none. Procedure: Pre-Anesthesia Assessment: - ASA Grade Assessment: III - A patient with severe systemic disease. - After reviewing the risks and benefits, the patient was deemed in satisfactory condition to undergo the procedure. After I obtained informed consent, the scope was passed under direct vision. Throughout the procedure, the patient's blood pressure, pulse, and oxygen saturations were monitored continuously. The Colonoscope was introduced through the anus and advanced to the cecum, identified by appendiceal orifice and ileocecal valve. The colonoscopy was performed without difficulty. The patient tolerated the procedure well. The quality of the bowel preparation was adequate. Findings: A 5 mm polyp was found in the proximal ascending colon. The polyp was sessile. The polyp was removed with a cold snare. Resection and retrieval were complete. Estimated blood loss was minimal. A 9 mm polyp was found in the proximal rectum. The polyp was semi-pedunculated. The polyp was removed with a hot snare. Resection and retrieval were complete. Estimated blood loss was minimal. Scattered small and large-mouthed diverticula were found in the sigmoid colon. Non-bleeding internal hemorrhoids were found during retroflexion. The hemorrhoids were small. The exam was otherwise without abnormality on direct and retroflexion views. Procedure Code(s): --- Professional --- 68961, Colonoscopy, flexible; with removal of tumor(s), polyp(s), or other lesion(s) by snare technique Diagnosis Code(s): --- Professional --- Z86.010, Personal history of colonic polyps D12.2, Benign neoplasm of ascending colon D12.8, Benign neoplasm of rectum CPT copyright 2020 [employer]. All rights reserved. The codes documented in this report are preliminary and upon opto mechanical technician review may be revised to meet current compliance requirements. David Lim MD 07/06/2024 10:06:11 AM This report has been signed electronically.David Lim MD Number of Addenda: 0 Note Initiated On: 07/06/2024 9:28 AM Scope In: Scope Out: Endoscopy Department at [facility] - [address] [place] [phone] Procedure Note David Lim MD - 07/06/2024 [facility] GI Patient Name: Kermit Galaviz Procedure Date: 07/06/2024 9:28 AM Date of : 1950 Age: 73 Room: ROOM 14 Gender: Male Note Status: Finalized Attending MD: David Lim MD, Procedure Date No Time: 07/06/2024 Procedure: Colonoscopy Indications: High risk colon cancer surveillance: Personalhistory of colonic polyps Providers: David Lim MD Referring MD: David Lim MD Medicines: Monitored Anesthesia Care Complications: No immediate complications. Estimated Blood Loss: Estimated blood loss: none. Procedure: Pre-Anesthesia Assessment: - ASA Grade Assessment: III - A patient with severe systemic disease. - After reviewing the risks and benefits, thepatient was deemed in satisfactory condition to undergo the procedure. After I obtained informed consent, the scope was passed under direct vision. Throughout theprocedure, the patient's blood pressure, pulse, and oxygen saturations were monitored continuously. The Colonoscope was introduced through the anus and advanced to the cecum, identified by appendiceal orifice and ileocecal valve. The colonoscopy was performed without difficulty. The patient tolerated the procedure well. The quality of the bowel preparation was adequate. Findings: A 5 mm polyp was found in the proximal ascending colon. The polyp was sessile. The polyp was removed with a cold snare. Resection and retrieval were complete. Estimated blood loss was minimal. A 9 mm polyp was found in the proximal rectum. The polyp was semi-pedunculated. The polyp was removed with a hot snare. Resection and retrieval were complete. Estimated blood loss was minimal. Scattered small and large-mouthed diverticula were found in the sigmoid colon. Non-bleeding internal hemorrhoids were found during retroflexion. The hemorrhoids were small. The exam was otherwise without abnormality ondirect and retroflexion views. Procedure Code(s): --- Professional --- 26986, Colonoscopy, flexible; with removal of tumor(s), polyp(s), or other lesion(s) by snare technique Diagnosis Code(s): --- Professional --- Z86.010, Personal history of colonic polyps D12.2, Benign neoplasm of ascending colon D12.8, Benign neoplasm of rectum CPT copyright 2020 [employer]. All rights reserved. The codes documented in this report are preliminary and upon opto mechanical technician reviewmay be revised to meet current compliance requirements. David Lim MD 07/06/2024 10:06:11 AM This report has been signed electronically.David Lim MD Number of Addenda: 0 Note Initiated On: 07/06/2024 9:28 AM Scope In: Scope Out: Endoscopy Department at [facility] - [address] [place] [phone] IMPRESSION: - One 5 mm polyp in the proximal ascending colon, removed with a cold snare. Resected andretrieved. - One 9 mm polyp in the proximal rectum, removedwith a hot snare. Resected and retrieved. - Diverticulosis in the sigmoid colon. - Non-bleeding internal hemorrhoids. - The examination was otherwise normal on directand retroflexion views. Recommendation: - Discharge patient to home. - High fiber diet. - Continue present medications. - Resume Eliquis (apixaban) at prior dosetomorrow. - Await pathology results. - Repeat colonoscopy for surveillance based on pathology results. - Return to GI clinic PRN. David Lim MD GI~PROCEDURE ORDERABLES Final Result from Last 3 Months or Most Recently Relevant to Health Maintenance Insurance MEDICARE [facility] Care Teams Data Management Associate Relationship Specialty Start Date End Date Kaila Varela MD [address] [phone] PCP - General 03/11/22
== END 2024-10-29 10:51 | disposition home or self-care (01) ==
LOC: HO.HMGAL 10:36
PROVIDERS: PCP Family Medicine; Visit Provider Registered Nurse Emergency
DX: J30.89 Other allergic rhinitis (principal)
CPT/HCPCS: 95117; 95165

== ENCOUNTER 2024-12-12 10:27 | Outpatient (AMB) | payer MEDICARE, OTHER, SELFPAY ==
--- OUTSIDE RECORDS SUMMARY | 2023-06-15 10:45 | XMS_ITS ---
Author Organization [facility] [address] Address [address] [place] [address] Care Team Providers Care Almond Blancher Hand Name Role Phone ULYSSES LA Unavailable [phone] Encounters Encounter Location Date Provider Diagnosis [facility] [address] [address] 06/15/2023 ULYSSES LA Plan Of Treatment No Information Progress Notes * AURELIA WHARTONOB:1950 (74 yo M)Acc No.[id number]:06/15/2023 Patient: LIO VIRGEN Provider: Steve LA NP :1950 A ge:72 Y S ex:Male Date:06/15/2023 Address:[address], [id number] Subjective: * Chief Complaints: * * Medical History: Objective: * Vitals: Assessment: Plan: * Treatment: * Images: Billing Information: * Visit Code: * Procedure Codes: * Electronic signature of DICK LA on 12/12/2024 at 01:01 PM EDT Sign off status: Pending * Provider: Steve LA NP Date: 0 06/15/2023 Generated for Sandip laurent/Denny/Maralitting on: 01:01 PM EDT
--- OUTSIDE RECORDS SUMMARY | 2023-08-04 07:30 | XMS_ITS ---
Author Organization [facility] Address [address] [place] [address] Care Team Providers Care Statistical Typist Name Role Phone ULYSSES LA Unavailable [phone] REASON FOR VISIT SECA PAID Medications Medication SIG (Take, Route, Frequency, Duration) Notes Start Date End Date Status Ozempic (1 MG/DOSE) 4 MG/3ML 1mg Subcutaneous weekly; Duration: 30 days Active Ozempic (0.25 or 0.5 MG/DOSE) 2 MG/3ML 0.25mg x 2 weeks, then 0.5mg weekly Subcutaneous weekly; Duration: 30 days Active Encounters Encounter Location Date Provider Diagnosis [facility] [address] [place] [id number] 08/04/2023 ULYSSES LA Other obesity due to excess calories E66.09 ; BMI 39.0-39.9,adult Z68.39 and Dietary counseling and surveillance Z71.3 Assessments Encounter Date Diagnosis (ICD Code) Assessment Notes Treatment Notes Treatment Clinical Notes Section Notes 08/04/2023 Other obesity due to excess calories (ICD-10 - E66.09) #Weight Management 08/04/2023 We will reinitiate Ozempic as he did well on this in the past There stock is now plentiful and should be available to rock picker at pharmacy Total time spent today was 30 minutes of which greater than 50% was spent on coordinating and counseling Patient has been found to be obese with a BMI of (39). Patient has class (2) obesity. We are a board certified obesity and weight management practice Patient has trialed behavioral modification, dietary restrictions and exercise for a minimum of 6 months The most recent [place] [employer] endocrinologists and [place] [employer] guidelines recommend patients who have overweight BMI or obesity BMI, who also have metabolic syndrome, prediabetes, HLD, and other comorbidities or at risk of developing type 2 diabetes should aim for a weight loss goal of at least 10% of the baseline body weight Patient counseled regarding effects of GLP/GIP-1 agonists, and other FDA approved wgt loss meds with regards to a multifactorial approach of weight loss as mentioned above and not solely appetite suppression. We have discussed the mechanism of GLP-1's/GIP, dual incretins, appetitite suppressants I think this would be fantastic option for her given her metabolic workup and body composition We have discussed the risks and benefits and side effects including/and not limited to Sarcopenia, intestinal obstruction, constipation, nausea, lethargy, headache Discussed importance of protein consumption for muscle maintenance as well as strength and resistance training ,probiotics, B12 complex biotin , iron and other nutrients, To help avoid telogen effluvium We have discussed the lifelong requirement of nutritional supplementation And adherence to an exercise regimen as well as importance of follow-up We did discuss the neurohormonal changes that are occurring with these medications and Need for long-term Continued usage The patient understands and agrees There is no history of medullary thyroid cancer or multiple endocrine neoplasia There is also no history of cardiovascular disease, hypertension, palpitations, or arrhythmias In the setting of potential stimulant/amphetami ne use such as phentermine We have also discussed risks and benefits, and the use of compounded medications to help offset the national shortages as well as financial implications vs trade name drugs Patient was reassured and welcomed to the practice. We discussed that we stress a hollistic medical approach with emphasis on lifestyle modification. Patient was informed that a healthy lifestyle with exercise and good eating habits can help reduce his risk of medical complications. He is explained that obesity increases his risk of diabetes, cardiovascular disease, or organ damage. We spent a lot of time discussing the relationship between food, exercise, sleep, mental health and obesity. Patient was counseled on the importance EATING local, organic food when possible. Patient was educated on clean 15 and dirty dozen. I provided information about reading books called The Food Rules by Santo Martino and Eat Fat Get Lean by Dr Oral Perkins. Self education is important in the journey for weight management. Patient was offered diagnostic testing. We want to measure visceral adiposity, advanced body composition, adverse lipids, fatty acid balance, risk for heart disease and atherosclerosis, markers of inflammation and genetic susceptibility. Patient was counseled on weight management and was advised to lose weight using A. Meal Replacement Products We discussed the lifelong requirement of nutritional supplementation and adherence to an exercise regimen as well as importance of dietary follow-up Patient was educated on the replacement products called optifast. This is a good way of taking fixed amount of calories. It has been shown in studies to be ineffective weight management tool. We also recommend maintaining adequate protein intake and muscle composition, 1.5mg/kg This however has to be coupled with lifestyle intervention as well as laboratory data and EKG monitoring. It is impossible to know how a person will tolerate complete meal replacement. The side effects of meal replacement and weight loss could include syncopal attacks, dizziness, gallstones, potential cholecystectomy, possible heart attack and even . The benefits of meal replacement would be potential weight loss but no guarantees can be made. Meal replacement products are not covered by insurance. Once the patient has bought these products we cannot return them B. Lifestyle management which includes several strategies as below 1. Eat a low carbohydrate good fat good protein diet. Eliminate refined carbohydrates from the diet. Continue blood sugar and sugared beverages. Eat local organic when possible. Cook your own meals. Read food labels. None about healthy snacks. Portion control and food with low glycemic index 2. Exercise regularly. Try to get at least 6000 steps a day. Use a predominant to track activity level. Consider using apps like Visionnaire, myfitnesspal, lose it, stick as needed for self-monitoring and weight management. Consider group exercises. Consider hiring a radio personality. Regular exercise is cunningham to sustainable health and prevents as a buffer against weight regain 3. Sleep is most important for healing. Tried to sleep at least 8 hours a night. A good quality sleep needs a sleep ritual with ideal room temperature of around 68. It might help to take a shower and have no electronics in the room and sleep in a very dark room without artificial light. Start her sleep routine and get up early in the morning and go to bed on time 4. Make a social connection. Surround yourself with positive people with positive energy. Connect with friends and family. 5. Get into the habit of meditating and mindfulness while doing everything. 6. Go outside and connect with nature. C. Prescription medications Patient was educated on the use of prescription medications for medical weight loss. This is a growing list and includes phentermine, Topamax,Qsymia, contrave, belviq and saxenda. All prescription medications could have side effects including but not limited to kidney stones, seizure disorder cardiac arrhythmias heart attack pancreatitis etc. etc.. Patient was encouraged to read the prescription insert and have coaching with their pharmacist and make an informed decision about taking medication and know that these medications are being prescribed with good intentions and we do not know how a patient would react to her medication. Sudden medications are FDA approved for weight loss and there is also off label use depending on patient's inability to afford medications in an attempt to lose weight D. Behavioral counseling was done to establish a relationship between food and an mood. Patient was provided information about local counseling and psychiatry and Dr Quinn at [facility]. We would like to cover regular topics and build on low glycemic eating exercise mindful eating, using yoga and meditation along with deep breathing and connecting with friends and family. E. MASS PAT reviewed, Patient's current medications were reviewed and opinion was given on medication that can cause weight gain and can be substituted F. Patient was assessed for risk with obesity including and not limiting to atherosclerosis heart disease stroke kidney disease, restrictive lung disease, irritable bowel syndrome and overall mortality. Risk of developing prediabetes diabetes and metabolic syndrome was discussed G. Therapeutic plan: We have decided to make therapeutic plan which would include choosing wisely on calories restricting portion getting active, tracking weight, getting good quality sleep and working on time management H. Patient will follow up in (4) weeks for weight management Of note, some information is being carried forward from prior records for informational purposes only and is being cited so that efficiency, safety and quality of the patient's care is not compromised This note was prepared using voice recognition software and direct typing Please excuse inadvertent jig operator or typing errors, or uncorrected word substitutions Although every attempt has been made by the provider to proofread this document, occasional misspellings and typographical errors may still be present Due to the previous pandemic, and the use of personal protective equipment (PPE) This may decrease voice recognition accuracy Inadvertent jig operator errors may occur 08/04/2023 BMI 39.0-39.9,adult (ICD-10 - Z68.39) #Weight Management 08/04/2023 We will reinitiate Genempic as he did well on this in the past There stock is now plentiful and should be available to rock picker at pharmacy Total time spent today was 30 minutes of which greater than 50% was spent on coordinating and counseling Patient has been found to be obese with a BMI of (39). Patient has class (2) obesity. We are a board certified obesity and weight management practice Patient has trialed behavioral modification, dietary restrictions and exercise for a minimum of 6 months The most recent [place] [employer] endocrinologists and [place] [employer] guidelines recommend patients who have overweight BMI or obesity BMI, who also have metabolic syndrome, prediabetes, HLD, and other comorbidities or at risk of developing type 2 diabetes should aim for a weight loss goal of at least 10% of the baseline body weight Patient counseled regarding effects of GLP/GIP-1 agonists, and other FDA approved wgt loss meds with regards to a multifactorial approach of weight loss as mentioned above and not solely appetite suppression. We have discussed the mechanism of GLP-1's/GIP, dual incretins, appetitite suppressants I think this would be fantastic option for her given her metabolic workup and body composition We have discussed the risks and benefits and side effects including/and not limited to Sarcopenia, intestinal obstruction, constipation, nausea, lethargy, headache Discussed importance of protein consumption for muscle maintenance as well as strength and resistance training ,probiotics, B12 complex biotin , iron and other nutrients, To help avoid telogen effluvium We have discussed the lifelong requirement of nutritional supplementation And adherence to an exercise regimen as well as importance of follow-up We did discuss the neurohormonal changes that are occurring with these medications and Need for long-term Continued usage The patient understands and agrees There is no history of medullary thyroid cancer or multiple endocrine neoplasia There is also no history of cardiovascular disease, hypertension, palpitations, or arrhythmias In the setting of potential stimulant/amphetami ne use such as phentermine We have also discussed risks and benefits, and the use of compounded medications to help offset the national shortages as well as financial implications vs trade name drugs Patient was reassured and welcomed to the practice. We discussed that we stress a hollistic medical approach with emphasis on lifestyle modification. Patient was informed that a healthy lifestyle with exercise and good eating habits can help reduce his risk of medical complications. He is explained that obesity increases his risk of diabetes, cardiovascular disease, or organ damage. We spent a lot of time discussing the relationship between food, exercise, sleep, mental health and obesity. Patient was counseled on the importance EATING local, organic food when possible. Patient was educated on clean 15 and dirty dozen. I provided information about reading books called The Food Rules by Santo Martino and Eat Fat Get Lean by Dr Oral Perkins. Self education is important in the journey for weight management. Patient was offered diagnostic testing. We want to measure visceral adiposity, advanced body composition, adverse lipids, fatty acid balance, risk for heart disease and atherosclerosis, markers of inflammation and genetic susceptibility. Patient was counseled on weight management and was advised to lose weight using A. Meal Replacement Products We discussed the lifelong requirement of nutritional supplementation and adherence to an exercise regimen as well as importance of dietary follow-up Patient was educated on the replacement products called optifast. This is a good way of taking fixed amount of calories. It has been shown in studies to be ineffective weight management tool. We also recommend maintaining adequate protein intake and muscle composition, 1.5mg/kg This however has to be coupled with lifestyle intervention as well as laboratory data and EKG monitoring. It is impossible to know how a person will tolerate complete meal replacement. The side effects of meal replacement and weight loss could include syncopal attacks, dizziness, gallstones, potential cholecystectomy, possible heart attack and even . The benefits of meal replacement would be potential weight loss but no guarantees can be made. Meal replacement products are not covered by insurance. Once the patient has bought these products we cannot return them B. Lifestyle management which includes several strategies as below 1. Eat a low carbohydrate good fat good protein diet. Eliminate refined carbohydrates from the diet. Continue blood sugar and sugared beverages. Eat local organic when possible. Cook your own meals. Read food labels. None about healthy snacks. Portion control and food with low glycemic index 2. Exercise regularly. Try to get at least 6000 steps a day. Use a predominant to track activity level. Consider using apps like Visionnaire, myfitnesspal, lose it, stick as needed for self-monitoring and weight management. Consider group exercises. Consider hiring a radio personality. Regular exercise is cunningham to sustainable health and prevents as a buffer against weight regain 3. Sleep is most important for healing. Tried to sleep at least 8 hours a night. A good quality sleep needs a sleep ritual with ideal room temperature of around 68. It might help to take a shower and have no electronics in the room and sleep in a very dark room without artificial light. Start her sleep routine and get up early in the morning and go to bed on time 4. Make a social connection. Surround yourself with positive people with positive energy. Connect with friends and family. 5. Get into the habit of meditating and mindfulness while doing everything. 6. Go outside and connect with nature. C. Prescription medications Patient was educated on the use of prescription medications for medical weight loss. This is a growing list and includes phentermine, Topamax,Qsymia, contrave, belviq and saxenda. All prescription medications could have side effects including but not limited to kidney stones, seizure disorder cardiac arrhythmias heart attack pancreatitis etc. etc.. Patient was encouraged to read the prescription insert and have coaching with their pharmacist and make an informed decision about taking medication and know that these medications are being prescribed with good intentions and we do not know how a patient would react to her medication. Sudden medications are FDA approved for weight loss and there is also off label use depending on patient's inability to afford medications in an attempt to lose weight D. Behavioral counseling was done to establish a relationship between food and an mood. Patient was provided information about local counseling and psychiatry and Dr Quinn at [facility]. We would like to cover regular topics and build on low glycemic eating exercise mindful eating, using yoga and meditation along with deep breathing and connecting with friends and family. E. MASS PAT reviewed, Patient's current medications were reviewed and opinion was given on medication that can cause weight gain and can be substituted F. Patient was assessed for risk with obesity including and not limiting to atherosclerosis heart disease stroke kidney disease, restrictive lung disease, irritable bowel syndrome and overall mortality. Risk of developing prediabetes diabetes and metabolic syndrome was discussed G. Therapeutic plan: We have decided to make therapeutic plan which would include choosing wisely on calories restricting portion getting active, tracking weight, getting good quality sleep and working on time management H. Patient will follow up in (4) weeks for weight management Of note, some information is being carried forward from prior records for informational purposes only and is being cited so that efficiency, safety and quality of the patient's care is not compromised This note was prepared using voice recognition software and direct typing Please excuse inadvertent jig operator or typing errors, or uncorrected word substitutions Although every attempt has been made by the provider to proofread this document, occasional misspellings and typographical errors may still be present Due to the previous pandemic, and the use of personal protective equipment (PPE) This may decrease voice recognition accuracy Inadvertent jig operator errors may occur 08/04/2023 Dietary counseling and surveillance (ICD-10 - Z71.3) #Weight Management 08/04/2023 We will reinitiate Reji as he did well on this in the past There stock is now plentiful and should be available to rock picker at pharmacy Total time spent today was 30 minutes of which greater than 50% was spent on coordinating and counseling Patient has been found to be obese with a BMI of (39). Patient has class (2) obesity. We are a board certified obesity and weight management practice Patient has trialed behavioral modification, dietary restrictions and exercise for a minimum of 6 months The most recent [place] [employer] clinical endocrinologists and [place] [employer] guidelines recommend patients who have overweight BMI or obesity BMI, who also have metabolic syndrome, prediabetes, HLD, and other comorbidities or at risk of developing type 2 diabetes should aim for a weight loss goal of at least 10% of the baseline body weight Patient counseled regarding effects of GLP/GIP-1 agonists, and other FDA approved wgt loss meds with regards to a multifactorial approach of weight loss as mentioned above and not solely appetite suppression. We have discussed the mechanism of GLP-1's/GIP, dual incretins, appetitite suppressants I think this would be fantastic option for her given her metabolic workup and body composition We have discussed the risks and benefits and side effects including/and not limited to Sarcopenia, intestinal obstruction, constipation, nausea, lethargy, headache Discussed importance of protein consumption for muscle maintenance as well as strength and resistance training ,probiotics, B12 complex biotin , iron and other nutrients, To help avoid telogen effluvium We have discussed the lifelong requirement of nutritional supplementation And adherence to an exercise regimen as well as importance of follow-up We did discuss the neurohormonal changes that are occurring with these medications and Need for long-term Continued usage The patient understands and agrees There is no history of medullary thyroid cancer or multiple endocrine neoplasia There is also no history of cardiovascular disease, hypertension, palpitations, or arrhythmias In the setting of potential stimulant/amphetami ne use such as phentermine We have also discussed risks and benefits, and the use of compounded medications to help offset the national shortages as well as financial implications vs trade name drugs Patient was reassured and welcomed to the practice. We discussed that we stress a hollistic medical approach with emphasis on lifestyle modification. Patient was informed that a healthy lifestyle with exercise and good eating habits can help reduce his risk of medical complications. He is explained that obesity increases his risk of diabetes, cardiovascular disease, or organ damage. We spent a lot of time discussing the relationship between food, exercise, sleep, mental health and obesity. Patient was counseled on the importance EATING local, organic food when possible. Patient was educated on clean 15 and dirty dozen. I provided information about reading books called The Food Rules by Santo Martino and Eat Fat Get Lean by Dr Oral Perkins. Self education is important in the journey for weight management. Patient was offered diagnostic testing. We want to measure visceral adiposity, advanced body composition, adverse lipids, fatty acid balance, risk for heart disease and atherosclerosis, markers of inflammation and genetic susceptibility. Patient was counseled on weight management and was advised to lose weight using A. Meal Replacement Products We discussed the lifelong requirement of nutritional supplementation and adherence to an exercise regimen as well as importance of dietary follow-up Patient was educated on the replacement products called optifast. This is a good way of taking fixed amount of calories. It has been shown in studies to be ineffective weight management tool. We also recommend maintaining adequate protein intake and muscle composition, 1.5mg/kg This however has to be coupled with lifestyle intervention as well as laboratory data and EKG monitoring. It is impossible to know how a person will tolerate complete meal replacement. The side effects of meal replacement and weight loss could include syncopal attacks, dizziness, gallstones, potential cholecystectomy, possible heart attack and even . The benefits of meal replacement would be potential weight loss but no guarantees can be made. Meal replacement products are not covered by insurance. Once the patient has bought these products we cannot return them B. Lifestyle management which includes several strategies as below 1. Eat a low carbohydrate good fat good protein diet. Eliminate refined carbohydrates from the diet. Continue blood sugar and sugared beverages. Eat local organic when possible. Cook your own meals. Read food labels. None about healthy snacks. Portion control and food with low glycemic index 2. Exercise regularly. Try to get at least 6000 steps a day. Use a predominant to track activity level. Consider using apps like Visionnaire, myfitnesspal, lose it, stick as needed for self-monitoring and weight management. Consider group exercises. Consider hiring a radio personality. Regular exercise is cunningham to sustainable health and prevents as a buffer against weight regain 3. Sleep is most important for healing. Tried to sleep at least 8 hours a night. A good quality sleep needs a sleep ritual with ideal room temperature of around 68. It might help to take a shower and have no electronics in the room and sleep in a very dark room without artificial light. Start her sleep routine and get up early in the morning and go to bed on time 4. Make a social connection. Surround yourself with positive people with positive energy. Connect with friends and family. 5. Get into the habit of meditating and mindfulness while doing everything. 6. Go outside and connect with nature. C. Prescription medications Patient was educated on the use of prescription medications for medical weight loss. This is a growing list and includes phentermine, Topamax,Qsymia, contrave, belviq and saxenda. All prescription medications could have side effects including but not limited to kidney stones, seizure disorder cardiac arrhythmias heart attack pancreatitis etc. etc.. Patient was encouraged to read the prescription insert and have coaching with their pharmacist and make an informed decision about taking medication and know that these medications are being prescribed with good intentions and we do not know how a patient would react to her medication. Sudden medications are FDA approved for weight loss and there is also off label use depending on patient's inability to afford medications in an attempt to lose weight D. Behavioral counseling was done to establish a relationship between food and an mood. Patient was provided information about local counseling and psychiatry and Dr Quinn at [facility]. We would like to cover regular topics and build on low glycemic eating exercise mindful eating, using yoga and meditation along with deep breathing and connecting with friends and family. E. MASS PAT reviewed, Patient's current medications were reviewed and opinion was given on medication that can cause weight gain and can be substituted F. Patient was assessed for risk with obesity including and not limiting to atherosclerosis heart disease stroke kidney disease, restrictive lung disease, irritable bowel syndrome and overall mortality. Risk of developing prediabetes diabetes and metabolic syndrome was discussed G. Therapeutic plan: We have decided to make therapeutic plan which would include choosing wisely on calories restricting portion getting active, tracking weight, getting good quality sleep and working on time management H. Patient will follow up in (4) weeks for weight management Of note, some information is being carried forward from prior records for informational purposes only and is being cited so that efficiency, safety and quality of the patient's care is not compromised This note was prepared using voice recognition software and direct typing Please excuse inadvertent jig operator or typing errors, or uncorrected word substitutions Although every attempt has been made by the provider to proofread this document, occasional misspellings and typographical errors may still be present Due to the previous pandemic, and the use of personal protective equipment (PPE) This may decrease voice recognition accuracy Inadvertent jig operator errors may occur Plan Of Treatment Medication Medication Name Sig Start Date Stop Date Notes Ozempic (1 MG/DOSE) 4 MG/3ML 1mg Subcuta neous weekly; Duration: 30 days Ozempic (0.25 or 0.5 MG/DOSE) 2 MG/3ML 0.25mg x 2 weeks, then 0.5mg weekly Subcutaneous weekly; Duration: 30 days Progress Notes * AURELIA WHARTONOB:1950 (74 yo M)Acc No.[id number]:08/04/2023 Patient: LIO VIRGEN Provider: Steve LA NP :1950 A ge:72 Y S ex:Male Date:08/04/2023 Address: [address], [id number] Subjective: * Chief Complaints: * 1 . SECA PAID. * HPI: C onstitutional: Patient is here today for a weight management f/u visit Patient seen and examined. Full past medical history, social history, family history, allergies and current medications were reviewed and updated. Body composition analysis reviewed today, as expected increased BMI, visceral adiposity, fat mass index, waist cirumference Good skeletal mass composition, Good water composition Caloric energy expenditure discussed #Weight Management 08/04/2023 Updated labs reviewed S/P L TKR 02/18/2023 Activity has been somewhat limited scheduled to have prostatectomy in near future currently not on meds* He states his cravings have begun to come back Had been on Trulicity 3 mg *wants to get back on Ozempic Reports poor appetite suppression, stating that he overindulges for dinner. States that appetite was better controlled on Ozempic. Pt states his is helping him with diet and increasing his protein intake . Pt is taking calcium and potassium citrate for kidney stones. Pt reports he had his parathyroid checked w/ endocrine Discussed importance of protein consumption for muscle maintenance, strength and resistance training as well as probiotics, B12 complex biotin , iron and other nutrients, To also help avoid telogen effluvium while on weight loss medications such as GLP-1 seeing health and nutrition specialist for thyroid or parathyroid?, in [facility] [facility] this november 15 2022 Concern for PTH imbalance , urology referred for excessive stone formation 08/04/2023, Weight , BMI 01/17/2023: Weight 275 lbs, BMI 37 (+4 lbs) 11/26/2022: Weight 271 lbs , BMI 36 (-1lb) 10/12/2022: Weight 272 lbs, BMI 36 (+2) 08/17/2022: Weight 270lbs, BMI 36 (-12) 07/13/2022: Weight 282 lbs, BMI 38: Comprehensive labs, April 2023 Electrolytes renal function LFTs are stable Hemoglobin A1c 5.5 Total cholesterol 127, LDL 58, HDL 51, triglycerides 92 TSH 1.63 Vitamin D 39 Patient referred to us from PCP, [facility] 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 Diet: grab and go, not portion controlling Exercise: Walking about 5-6 times a day with dogs. Knee replacement February 18, hoping to become more active after surgery Non-smoker. ETOH use: none. * ROS: A ll Other Systems: Review of Systems (ROS) A ll others negative except those mentioned in HPI. * Medical History: Objective: * Vitals: * Examination: G eneral Examination: GENERAL APPEARANCE: i n no acute distress, well developed, well nourished. H EAD: n ormocephalic, atraumatic. E YES: p upils equal, round, reactive to light and accommodation. E ARS: n ormal. O RAL CAVITY: m ucosa moist. T HROAT: c lear. N WAQAS/THYROID: n waqas supple, full range of motion, no cervical lymphadenopathy. S KIN: n o suspicious lesions, warm and dry. H EART: n o murmurs, regular rate and rhythm, S1, S2 normal. L UNGS: c lear to auscultation bilaterally. A BDOMEN: n ormal, bowel sounds present, soft, nontender, nondistended. E XTREMITIES: n o clubbing, cyanosis, or edema. N EUROLOGIC: n onfocal, motor strength normal upper and lower extremities, sensory exam intact. Assessment: * Assessment: 1. O ther obesity due to excess calories - E66.09 (Primary) 2 . B NJ 39.0-39.9,adult - Z68.39 3 . D ietary counseling and surveillance - Z71.3 ? #Weight Management 08/04/2023 We will reinitiate Reji as he did well on this in the past There stock is now plentiful and should be available to rock picker at pharmacy Total time spent today was 30 minutes of which greater than 50% was spent on coordinating and counseling Patient has been found to be obese with a BMI of (39). Patient has class (2) obesity. We are a board certified obesity and weight management practice Patient has trialed behavioral modification, dietary restrictions and exercise for a minimum of 6 months The most recent [place] [employer] of clinical endocrinologists and [place] [employer]in[employer] guidelines recommend patients who have overweight BMI or obesity BMI, who also have metabolic syndrome, prediabetes, HLD, and other comorbidities or at risk of developing type 2 diabetes should aim for a weight loss goal of at least 10% of the baseline body weight Patient counseled regarding effects of GLP/GIP-1 agonists, and other FDA approved wgt loss meds with regards to a multifactorial approach of weight loss as mentioned above and not solely appetite suppression. We have discussed the mechanism of GLP-1's/GIP, dual incretins, appetitite suppressants I think this would be fantastic option for her given her metabolic workup and body composition We have discussed the risks and benefits and side effects including/and not limited to Sarcopenia, intestinal obstruction, constipation, nausea, lethargy, headache Discussed importance of protein consumption for muscle maintenance as well as strength and resistance training ,probiotics, B12 complex biotin , iron and other nutrients, To help avoid telogen effluvium We have discussed the lifelong requirement of nutritional supplementation And adherence to an exercise regimen as well as importance of follow-up We did discuss the neurohormonal changes that are occurring with these medications and Need for long-term Continued usage The patient understands and agrees There is no history of medullary thyroid cancer or multiple endocrine neoplasia There is also no history of cardiovascular disease, hypertension, palpitations, or arrhythmias In the setting of potential stimulant/amphetamine use such as phentermine We have also discussed risks and benefits, and the use of compounded medications to help offset the national shortages as well as financial implications vs trade name drugs Patient was reassured and welcomed to the practice. We discussed that we stress a hollistic medical approach with emphasis on lifestyle modification. Patient was informed that a healthy lifestyle with exercise and good eating habits can help reduce his risk of medical complications. He is explained that obesity increases his risk of diabetes, cardiovascular disease, or organ damage. We spent a lot of time discussing the relationship between food, exercise, sleep, mental health and obesity. Patient was counseled on the importance EATING local, organic food when possible. Patient was educated on clean 15 and dirty dozen. I provided information about reading books called The Food Rules by Santo Martino and Eat Fat Get Lean by Dr Oral Perkins. Self education is important in the journey for weight management. Patient was offered diagnostic testing. We want to measure visceral adiposity, advanced body composition, adverse lipids, fatty acid balance, risk for heart disease and atherosclerosis, markers of inflammation and genetic susceptibility. Patient was counseled on weight management and was advised to lose weight using A. Meal Replacement Products We discussed the lifelong requirement of nutritional supplementation and adherence to an exercise regimen as well as importance of dietary follow-up Patient was educated on the replacement products called optifast. This is a good way of taking fixed amount of calories. It has been shown in studies to be ineffective weight management tool. We also recommend maintaining adequate protein intake and muscle composition, 1.5mg/kg This however has to be coupled with lifestyle intervention as well as laboratory data and EKG monitoring. It is impossible to know how a person will tolerate complete meal replacement. The side effects of meal replacement and weight loss could include syncopal attacks, dizziness, gallstones, potential cholecystectomy, possible heart attack and even . The benefits of meal replacement would be potential weight loss but no guarantees can be made. Meal replacement products are not covered by insurance. Once the patient has bought these products we cannot return them B. Lifestyle management which includes several strategies as below 1. Eat a low carbohydrate good fat good protein diet. Eliminate refined carbohydrates from the diet. Continue blood sugar and sugared beverages. Eat local organic when possible. Cook your own meals. Read food labels. None about healthy snacks. Portion control and food with low glycemic index 2. Exercise regularly. Try to get at least 6000 steps a day. Use a predominant to track activity level. Consider using apps like Visionnaire, Taskhero.compal, lose it, stick as needed for self-monitoring and weight management. Consider group exercises. Consider hiring a radio personality. Regular exercise is cunningham to sustainable health and prevents as a buffer against weight regain 3. Sleep is most important for healing. Tried to sleep at least 8 hours a night. A good quality sleep needs a sleep ritual with ideal room temperature of around 68. It might help to take a shower and have no electronics in the room and sleep in a very dark room without artificial light. Start her sleep routine and get up early in the morning and go to bed on time 4. Make a social connection. Surround yourself with positive people with positive energy. Connect with friends and family. 5. Get into the habit of meditating and mindfulness while doing everything. 6. Go outside and connect with nature. C. Prescription medications Patient was educated on the use of prescription medications for medical weight loss. This is a growing list and includes phentermine, Topamax,Qsymia, contrave, belviq and saxenda. All prescription medications could have side effects including but not limited to kidney stones, seizure disorder cardiac arrhythmias heart attack pancreatitis etc. etc.. Patient was encouraged to read the prescription insert and have coaching with their pharmacist and make an informed decision about taking medication and know that these medications are being prescribed with good intentions and we do not know how a patient would react to her medication. Sudden medications are FDA approved for weight loss and there is also off label use depending on patient's inability to afford medications in an attempt to lose weight D. Behavioral counseling was done to establish a relationship between food and an mood. Patient was provided information about local counseling and psychiatry and Dr Quinn at [facility]. We would like to cover regular topics and build on low glycemic eating exercise mindful eating, using yoga and meditation along with deep breathing and connecting with friends and family. E. MASS PAT reviewed, Patient's current medications were reviewed and opinion was given on medication that can cause weight gain and can be substituted F. Patient was assessed for risk with obesity including and not limiting to atherosclerosis heart disease stroke kidney disease, restrictive lung disease, irritable bowel syndrome and overall mortality. Risk of developing prediabetes diabetes and metabolic syndrome was discussed G. Therapeutic plan: We have decided to make therapeutic plan which would include choosing wisely on calories restricting portion getting active, tracking weight, getting good quality sleep and working on time management H. Patient will follow up in (4) weeks for weight management Of note, some information is being carried forward from prior records for informational purposes only and is being cited so that efficiency, safety and quality of the patient's care is not compromised This note was prepared using voice recognition software and direct typing Please excuse inadvertent jig operator or typing errors, or uncorrected word substitutions Although every attempt has been made by the provider to proofread this document, occasional misspellings and typographical errors may still be present Due to the previous pandemic, and the use of personal protective equipment (PPE) This may decrease voice recognition accuracy Inadvertent jig operator errors may occur. Plan: * Treatment: * Images: Billing Information: * Visit Code: * Procedure Codes: * Electronic signature of DICK LA on 12/12/2024 at 01:01 PM EDT Sign off status: Pending * Provider: Steve LA NP Date: 0 08/04/2023 Generated for Sandip laurent/Denny/Vishal on: 1 01:01 PM EDT History and Physical Notes * HPI (History of Present Illness) Category Sub-Category Detail Notes Category Not es Constitutional Patient is here today for a weight management f/u visit Patient seen and examined. Full past medical history, social history, family history, allergies and current medications were reviewed and updated. Body composition analysis reviewed today, as expected increased BMI, visceral adiposity, fat mass index, waist cirumference Good skeletal mass composition, Good water composition Caloric energy expenditure discussed #Weight Management 08/04/2023 Updated labs reviewed S/P L TKR 02/18/2023 Activity has been somewhat limited scheduled to have prostatectomy in near future currently not on meds* He states his cravings have begun to come back Had been on Trulicity 3 mg *wants to get back on Ozempic Reports poor appetite suppression, stating that he overindulges for dinner. States that appetite was better controlled on Ozempic. Pt states his is helping him with diet and increasing his protein intake . Pt is taking calcium and potassium citrate for kidney stones. Pt reports he had his parathyroid checked w/ endocrine Discussed importance of protein consumption for muscle maintenance, strength and resistance training as well as probiotics, B12 complex biotin , iron and other nutrients, To also help avoid telogen effluvium while on weight loss medications such as GLP-1 seeing health and nutrition specialist for thyroid or parathyroid?, in [facility] this november 15 2022 Concern for PTH imbalance , urology referred for excessive stone formation 08/04/2023, Weight , BMI 01/17/2023: Weight 275 lbs, BMI 37 (+4 lbs) 11/26/2022: Weight 271 lbs , BMI 36 (-1lb) 10/12/2022: Weight 272 lbs, BMI 36 (+2) 08/17/2022: Weight 270lbs, BMI 36 (-12) 07/13/2022: Weight 282 lbs, BMI 38: Comprehensive labs, April 2023 Electrolytes renal function LFTs are stable Hemoglobin A1c 5.5 Total cholesterol 127, LDL 58, HDL 51, triglycerides 92 TSH 1.63 Vitamin D 39 [facility] 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 Diet: grab and go, not portion controlling Exercise: Walking about 5-6 times a day with dogs. Knee replacement February 18, hoping to become more active after surgery Non-smoker. ETOH use: none Examination Category Sub-Category Detail Notes Category Not es General Examination GENERAL APPEARANCE: in no ac zoë distress, well developed, well nourished HEAD: normocephalic, atrau matic EYES: pupils equal, round, reactive to light and accommodation EARS: normal THROAT: clear NECK/THYROID: neck supple, full ra nge of motion, no cervical lymphadenopathy HEART: no murmurs, regular rate and rhythm, S1, S2 normal LUNGS: clear to auscultatio n bilaterally ABDOMEN: normal, bowel sounds present, soft, nontender, nondistended NEUROLOGIC: nonfocal, motor stre ngth normal upper and lower extremities, sensory exam intact SKIN: no suspicious lesion s, warm and dry EXTREMITIES: no clubbing, cyanosi s, or edema ORAL CAVITY: mucosa moist
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
--- OUTSIDE RECORDS SUMMARY | 2024-12-12 13:01 | XMS_ITS | Encounter Summary ---
Author Organization [facility] [place] [address] Care Team Providers Care Sql Analyst Name Role Phone Kaila Varela MD Primary Care Provider [phone] Encounter Details Date Type Department Care Team (Late st Contact Info) Description 03/09/2024 Lab Requisition [facility] - Main Lab [address] [facility] [place] [phone] Natacha Cosme PA [address] [facility] [address] [place] [address] Urinary tract infection, site not specified Social [...] as of this encounter Plan of Treatment Upcoming Encounters Date Type Department Care Team (Late st Contact Info) Description 04/19/2025 7:40 AM EST Office Visit [facility] - [address] [facility] [address] [place] [address] Leda Jones NP [address] [place] [address] documented as of this encounter Procedures Procedure Name Priority Date/Time Associated Diagnosis Comments CULTURE URINE Routine 03/09/2024 12:00 AM EST Urinary tract infection, site not specified documented in this encounter Results * Culture urine (03/09/2024 12:00 AM EST) Culture, Urine No growth 03/10/2024 10:08 AM EST [facility] Urine Urine specimen obtained by clean catch procedure / Unknown 03/09/2024 03/09/2024 1:08 PM EST us [facility] MICROBIOLOGY - GENERAL ORD ERABLES Final Result [facility] [address] [place] [address], documented in this encounter Visit Diagnoses Diagnosis Urinary tract infection, site not specified documented in this encounter Care Teams Sql Analyst Relationship Specialty Start Date End Date Kaila Varela MD [address] [place] [phone] PCP - General 03/11/22 documented as of this encounter
--- OUTSIDE RECORDS SUMMARY | 2024-12-12 13:02 | XMS_ITS | Encounter Summary ---
Author Organization [facility] [place] [address] Care Team Providers Care Medical Receptionist Medical Assistant Name Role Phone Kaila Varela MD Primary Care Provider [phone] Reason for Visit * Reason Onset Date Comments scheduling 12/10/2024 Encounter Details Date Type Department Care Team (Late st Contact Info) Description 12/10/2024 Telephone [facility] - [facility] [address] [facility] [address] [place] [phone] Kota Groves MD [address] [facility] [address] [place] [address] Social History Tobacco Use Types Packs/Day Years [...] on file documented as of this encounter Progress Notes * Yomi Burroughs - 12/10/2024 1:10 PM EDT Booked. * Yomi Burroughs - 12/10/2024 11:38 AM EDT Called patient to schedule follow up with Dr Groves, no answer, left voicemail. Yomi has paper referral. documented in this encounter Plan of Treatment Upcoming Encounters Date Type Department Care Team (Late st Contact Info) Description 04/19/2025 7:40 AM EST Office Visit [facility] - [facility] [address] [facility] [address] [place] [phone] Leda Jones, DARCI [address] [facility] [address] [place] [phone] documented as of this encounter Visit Diagnoses Not on filedocumented in this encounter Care Teams Medical Receptionist Medical Assistant Relationship Specialty Start Date End Date Kaila Varela MD [address] [facility] [address] [place] [phone] PCP - General 03/11/22 documented as of this encounter
--- OUTSIDE RECORDS SUMMARY | 2024-12-12 13:02 | XMS_ITS | Clinical Summary ---
Author Organization LL [address] [place] [address] [place] [phone] Phone Care Team Providers Care Patient Accounts Specialist Name Role Phone Kaila Varela MD Primary Care Provider [phone] Allergies Active Allergy Reactions Criticality Noted Date [...] by the office 2 tablet 5 Active Encounters Date Type Department Care Team Description 12/10/2024 Telephone [facility] - [facility] [address] [facility] [address] [place] [address] Kota Groves MD from Last 3 Months Medical History Medical History Date Comments Kidney stones DX:Kidney stones Sleep apnea DX:Sleep apnea Sepsis (CMS/HCC V24, CMS/HCC V28) DX:Sepsis (HCC) MIGUEL (acute kidney injury) (CMS/HCC V24) DX:MIGUEL (acute kidney injury) ([facility]) Bacteremia DX:Bacteremia Rhabdomyolysis DX:Rhabdomyolysi s UTI [...] 07/06/2024 9:28 AM EDT Plan of Treatment Upcoming Encounters Date Type Department Care Team (Late st Contact Info) Description 04/19/2025 7:40 AM EST Office Visit [facility] - [facility] [address] [facility] [address] [place] [address] Leda Jones NP [address] [place] [address] Health Maintenance Due Date Last Done Comments [...] Maintenance Results * COLONOSCOPY Anesthesia - MAC; [facility] ENDOSCOPY (07/06/2024 10:06 AM EDT) Anatomical [...] clinic PRN. Narrative 07/06/2024 10:06 AM EDT [facility] GI Patient Name: Kermit Galaviz Procedure Date: [...] retroflexion views. Procedure Code(s): --- Professional --- 12862, Colonoscopy, flexible; with removal of tumor(s), polyp(s), or other lesion(s) by snare technique Diagnosis Code(s): --- Professional --- Z86.010, Personal history of colonic polyps D12.2, Benign neoplasm of ascending colon D12.8, Benign neoplasm of rectum CPT copyright 202 [employer]. All rights reserved. The codes documented in this report are preliminary and upon quick service technician review may be revised to meet current compliance requirements. David Lim MD 07/06/2024 10:06:11 AM This report has been signed electronically.David Lim MD Number of Addenda: 0 Note Initiated On: 07/06/2024 9:28 AM Scope In: Scope Out: Endoscopy Department at [facility] - [address] [place] [phone] Procedure Note David Lim MD - 07/06/2024 [facility] Patient Name: Kermit Galaviz Procedure Date: [...] retroflexion views. Procedure Code(s): --- Professional --- 13971, Colonoscopy, flexible; with removal of tumor(s), polyp(s), or other lesion(s) by snare technique Diagnosis Code(s): --- Professional --- Z86.010, Personal history of colonic polyps D12.2, Benign neoplasm of ascending colon D12.8, Benign neoplasm of rectum CPT copyright 2020 [employer]. All rights reserved. The codes documented in this report are preliminary and upon quick service technician reviewmay be revised to meet current compliance requirements. David Lim MD 07/06/2024 10:06:11 AM This report has been signed electronically.David Lim MD Number of Addenda: 0 Note Initiated On: 07/06/2024 9:28 AM Scope In: Scope Out: Endoscopy Department at [facility] - [address] [place] [phone] IMPRESSION: - One 5 mm polyp in [...] Recently Relevant to Health Maintenance Insurance MEDICARE [facility] Care Teams Patient Accounts Specialist Relationship Specialty Start Date End Date Kaial Varela MD [address] [phone] PCP - General 03/11/22
== END 2024-12-12 10:28 | disposition home or self-care (01) ==
LOC: HO.HMGAL 10:27
PROVIDERS: PCP Family Medicine; Visit Provider Registered Nurse Emergency
DX: J30.89 Other allergic rhinitis (principal)
CPT/HCPCS: 95117; 95165

== ENCOUNTER 2025-01-30 11:44 | Outpatient (AMB) | payer MEDICARE, OTHER, SELFPAY | END 2025-01-30 11:45 | disposition home or self-care (01) | LOC: HO.HMGAL 11:44 | PROVIDERS: PCP Family Medicine; Visit Provider Registered Nurse Emergency | DX: J30.89 Other allergic rhinitis (principal) | CPT/HCPCS: 95117; 95165 ==